=== PATIENT | female | born 1975 | race Caucasian/White ===

== ENCOUNTER → 2018-09-25 | Outpatient (CLI) | payer OTHER ==
[2018-09-25 09:14] VITALS: BP 122/80; PULSE 58; RESP 12; TEMP 98.6; BMI 22.4
--- NOTE | 2018-09-25 09:49 | P.GSHP ---
History of Present Illness H&P Date: 09/25/18 Chief Complaint: mass right breast Jo is a 43-year-old white female who is status post approximately one year ago a right breast open biopsy for a fibroadenoma. The patient states that the lesion was painful and following the procedure in which was placed in her breast which became infected. The patient this time is complaining of nodularity at the biopsy site. The nodularity is tender for the patient. She did have the right breast mammogram and ultrasound performed on 5618. This did not reveal any abnormal lesion either mammographically or via ultrasound. No stellate mass architectural distortion or suspicious microcalcifications were noted to suggest malignancy. No skin thickening or axillary adenopathy. Sonographic images of the right 11 to 12:00 axis with the patient felt the palpable abnormality did not demonstrate any suspicious abnormalities. There was a deep probable nonpalpable 0.6 cm incidental cyst. No architectural distortion was noted. The patient states when she left she feels discomfort above her nipple. She does not have pain otherwise. The nodularity it increases with her periods, and the pain is worse with her periods. The pain with her menstrual cycle is in both breast. Patient denies any nipple discharge or skin changes. The patient drinks one cup of coffee per day. Does not drink pop or tea. She smokes 1 PPD. She is not exposed to secondhand smoke. She does not eat much chocolate. She does not take any hormones or control pills. She had a tubal ligation. Family history: 1. sister: ovarian, and cervical 2. aunt maternal: breast, in early 50's 3. aunt, maternal: breast at 58 4. father: colon 5. maternal grandfather: bone marrow cancer, colon, breast cancer 6. paternal grandmother skin cancer Hormonal History: menarche: 13 , 2 miscarriages, first live : 29, breast fed: yes periods regular BCP: none hormones: none Past surgical history: 1. 3 / tubal ligation 2. Right breast biopsy 3. Cholecystectomy 4. Exploratory surgery secondary difficulty getting Medical history: Negative Social history: Smoking: One pack per day for 15 years Alcohol: Wine several times a week Drugs: negative - Constitutional Constitutional: Denies chills, Denies fever - EENT Eyes: denies blurred vision, denies pain Ears: deny: decreased hearing, tinnitus Ears, nose, mouth and throat: Denies headache, Denies sore throat - Breasts Breasts: bilateral: as per HPI - Cardiovascular Comment: Leaking heart valve Cardiovascular: Denies chest pain, Denies shortness of breath - Respiratory Respiratory: Denies cough, Denies 7 - Gastrointestinal Comment: History of diverticuli, patient has never had a colonoscopy Gastrointestinal: Denies abdominal pain, Denies diarrhea, Denies nausea, Denies vomiting - Genitourinary (Female) Genitourinary: Denies dysuria, Denies hematuria - Menstruation Menstruation: Reports period normal - Musculoskeletal Musculoskeletal: Denies myalgias - Integumentary Integumentary: Denies pruritus, Denies rash - Neurological Comment: 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 History of Any Multi-Drug Resistant Organisms: None Reported Past Surgical History: Section, Cholecystectomy, Tubal Ligation Additional Past Surgical History / Comment(s): X3, Past Anesthesia/Blood Transfusion Reactions: No Reported Reaction Past Psychological History: No Psychological Hx Reported Smoking Status: Current some day smoker Past Alcohol Use History: Occasional Additional Past Alcohol Use History / Comment(s): SMOKES 1 PPD. SMOKING SINCE 19 YEARS OLD. (APPROX 23 YEARS). 1-2 DRINKS PER WEEK. Past Drug Use History: None Reported - Past Family History Father Family Medical History: Cancer, COPD, Diabetes Mellitus Additional Family Medical History / Comment(s): on vent, crohns, skin cancer Mother Family Medical History: Hypertension Sister(s) Family Medical History: Cancer Additional Family Medical History / Comment(s): ovarian & cervical cancer Medications and Allergies Home Medications Medication Instructions Recorded Confirmed Type Ibuprofen [Motrin] 600 mg PO Q8HR PRN #20 tab 11/26/15 Rx Allergies Allergy/AdvReac Type Severity Reaction Status Date / Time adhesive tape AdvReac Severe PEELING Verified 11/26/15 21:10 Surgical - Exam Vital Signs Temp Pulse Resp BP Pulse Ox 98.6 F 58 L 12 122/80 98 09/25/18 09:05 09/25/18 09:05 09/25/18 09:05 09/25/18 09:05 09/25/18 09:05 - General well developed, well nourished, no distress - Eyes normal ocular movement - ENT normal pinna, no hearing loss - Neck no masses, trachea midline, no lymphadectomy - Respiratory normal expansion, normal respiratory effort, clear to auscultation - Cardiovascular Rhythm: regular Heart Sounds: normal: S1, S2 - Abdomen Abdomen: soft, non tender, no guarding, no rigid, no rebound - Integumentary normal turgor - Neurologic no disoriented, no combative - Musculoskeletal normal gait, normal posture - Psychiatric oriented to time, oriented to person, oriented to place, speech is normal, memory intact Breast exam: right breast: multipositional exam increased nodularity felt to be most likely scar tissue near the area of the prior biopsy, well healed scar prior surgery, fibrocystic breast changes Right axilla: Axillary shotty adenopathy Left breast: Multi-positional exam fibrocystic changes Left axilla: No adenopathy of concern Results Mammogram and ultrasound reports reviewed the right breast Pathology report is verbal and written the surgeon's note but it did not have the actual pathology report Assessment and Plan Assessment: Impression: 1. Nodularity right breast 2. Bilateral breast pain 3. History of fibroadenoma 4. History of Jimenez's palsy 5. History of "leaky heart valve" 6. Family history of breast cancer 7. Family history of cancer I have had a discussion with the patient regarding her breast pain and caffeine and nicotine. I have requested that she stopped these. Additionally we have talked about the fact that the pain is cyclical and is most likely related to hormonal changes at her menstrual period. Plan: 1. Core biopsy area of increased nodularity right breast 2. Genetic counseling/Genetic testing 3. 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 Patient to follow up here for core biopsy of right breast CC:Emilie Adams NP, [place]
== END | disposition home or self-care (01) ==
LOC: WWCWWP 09:02
PROVIDERS: ATTEND Surgery
DX: Z53.9 Procedure and treatment not carried out, unspecified reason (principal)

== ENCOUNTER → 2018-11-07 | Outpatient (CLI) | payer OTHER ==
[2018-11-07 08:32] VITALS: BP 128/84; PULSE 62; RESP 18; TEMP 98.6; BMI 22.9
--- NOTE | 2018-11-07 09:06 | P.OP ---
Date of Procedure: 11/07/18 Preoperative Diagnosis: fullness at biopsy site right breast Postoperative Diagnosis: same Anesthesia: local Surgeon: Nichole Chang Pathology: other (breast tissue) Condition: stable Disposition: same day Indications for Procedure: Palpable increased fullness at biopsy site right breast Operative Findings: dense breast tissue Description of Procedure: Jo is a 43-year-old white female who is several years ago underwent a right breast biopsy. Reportedly the pathology report was benign. Although the actual pathology is not available to us. The patient has increased nodularity at the site of the biopsy and increased pain at this site as well. An physical examination there is definite increased nodularity at the site. After discussion with the patient she has opted for a core biopsy of the area. Of importance is the fact that she has a strong history of breast and ovarian cancer. The patient was positioned on the procedure table. The right breast was prepped using Betadine. The skin was numbed using 1% lidocaine. Small tic was made in the skin and an 18-gauge Bard biopsy needle was advanced to the area of palpable abnormality. Core biopsy was obtained. An attempt to obtain additional core biopsies was unsuccessful as the needle did not fire. Therefore a second Bard 18-gauge core biopsy device was obtained. Using this device. Additional core biopsies were obtained. The patient tolerated the procedure in stable condition. The specimen was sent for pathology. The patient will follow-up next week. CC: Emilie Adams N.P., Dr. Cale Wilkerson ([place])
== END ==
LOC: WWCWWP 08:08
PROVIDERS: ATTEND Surgery
DX: N64.9 Disorder of breast, unspecified (principal)
CPT/HCPCS: 88305

== ENCOUNTER → 2018-11-14 | Outpatient (CLI) | payer OTHER ==
[2018-11-14 13:07] VITALS: BP 124/84; PULSE 69; RESP 16; TEMP 98.6; BMI 22.4
--- NOTE | 2018-11-14 13:23 | P.PN ---
Subjective Progress Note Date: 11/14/18 The patient is a 43-year-old white female status post core biopsy of the right breast of an area of nodularity on [id number]. Pathology revealed benign breast parenchyma with some microscopic intraductal mineralization's. Approximately one year ago she had a right breast open biopsy for fibroadenoma. The patient states the lesion was painful following the procedure the area became infected. The patient can place of continued discomfort and nodularity at this site. A mammogram and ultrasound done in August 2018 did not reveal any specific lesions of concern. Of nodularity and creases right before her periods. She is on her menstrual period right now. The patient continues to drink coffee and smokes cigarettes. Objective - Vital Signs Vital signs: Vital Signs Temp 98.6 F 11/14/18 13:04 Pulse 69 11/14/18 13:04 Resp 16 11/14/18 13:04 BP 124/84 11/14/18 13:04 Pulse Ox 99 11/14/18 13:04 Intake & Output 11/13/18 11/14/18 11/14/18 18:59 06:59 18:59 Weight 61.235 kg - Exam BMI 22.5 - Constitutional General appearance: Present: average body habitus - EENT Eyes: Present: EOMI ENT: Present: hearing grossly normal - Neck Neck: Present: normal ROM - Respiratory Respiratory: bilateral: CTA - Cardiovascular Rhythm: regular Heart sounds: normal: S1, S2 - Integumentary Integumentary: Present: normal turgor - Musculoskeletal Musculoskeletal: Present: gait normal - Psychiatric Psychiatric: Present: A&O x's 3, appropriate affect, intact judgment & insight - Additional findings Additional findings: Right breast exam: Examination of the core biopsy site reveals it to be clean and dry with mild ecchymosis no infection no hematoma Assessment and Plan Assessment: Impression: 1. Core biopsy benign of the right breast 2. Fibrocystic changes in the right breast 3. Mastodynia probably related to fibrocystic changes 4. Family history of breast cancer 5. Family history of cancer Plan: 1. I have encouraged the patient to stop her caffeine and nicotine use she is going to try to do this 2. Repeat right breast ultrasound in 6 months with physician exam at that time 3. Medical management of medical conditions 4. Patient has appointment for genetic counseling in January 17. Patient is going to schedule RECREATIONAL SPECIALIST appointment Cc: Emilie Marmolejo
== END ==
LOC: WWCWWP 12:57
PROVIDERS: ATTEND Surgery
DX: Z53.9 Procedure and treatment not carried out, unspecified reason (principal)

== ENCOUNTER → 2018-11-25 | Outpatient (CLI) | payer OTHER ==
[2018-11-25 14:42] VITALS: BP 124/78; PULSE 74; RESP 18; TEMP 98.5; BMI 22.9
--- NOTE | 2018-11-25 15:38 | P.HPOB ---
History of Present Illness H&P Date: 11/25/18 Chief Complaint: The patient is here for her routine gynecologic exam. This is a 43-year-old with an LMP of 11/13/2018. The patient is here to establish with this office. It has been about 3 or 4 years since her last pelvic exam. The patient is status post tubal ligation. Her menstrual periods are regular every month, but they have been getting heavier and more painful. She states that typically the 1st one or 2 days are very heavy and painful. She has to change her protection up to every one hour on these heavy days. She is otherwise without gynecologic complaints. She typically does not take medication for her menstrual periods. Review of Systems The patient's weight has been stable over the last year. She denies respiratory, cardiac, or G.I. problems. 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 She denies genital warts or any other STDs. She has no history of cervical problems. History of Any Multi-Drug Resistant Organisms: None Reported Past Surgical History: Section, Cholecystectomy, Tubal Ligation Additional Past Surgical History / Comment(s): x3, Past Anesthesia/Blood Transfusion Reactions: No Reported Reaction Past Psychological History: ADD/ADHD Smoking Status: Current every day smoker (Half pack per day which is down from one pack per day.) Past Alcohol Use History: Occasional (One every 2 weeks.) Additional Past Alcohol Use History / Comment(s): SMOKES 1/2 PPD. SMOKING SINCE 19 YEARS OLD. Past Drug Use History: None Reported Additional History: She is . She has been with her boyfriend since 2011 and lives with him. 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 - Past Family History Father Family Medical History: Cancer, COPD, Diabetes Mellitus Additional Family Medical History / Comment(s): crohns; skin cancer. Colon cancer. Mother Family Medical History: Hypertension Additional Family Medical History / Comment(s): Maternal grandfather had breast cancer and colon cancer. A maternal aunt had breast cancer. Sister(s) Family Medical History: Cancer Additional Family Medical History / Comment(s): ovarian & cervical cancer, hysterectomy at the age of 29 Medications and Allergies Home Medications Medication Instructions Recorded Confirmed Type No Known Home Medications 11/07/18 11/25/18 History Allergies Allergy/AdvReac Type Severity Reaction Status Date / Time adhesive tape AdvReac Severe PEELING Verified 11/25/18 14:31 Exam Vital Signs Temp Pulse Resp BP Pulse Ox 11/25/18 14:36 98.5 F 74 18 124/78 99 Intake and Output 11/25/18 11/25/18 11/25/18 06:59 14:59 22:59 Other: Weight 63.503 kg Height 5 feet 5 1/2 inches, weight 140 pounds, BMI 22.9. This is a well-developed well-nourished white female who is alert and oriented times 3 in no acute distress. HEENT: Within normal limits. NECK: Supple without mass or thyromegaly. CHEST AND LUNGS: Clear to auscultation. HEART: Regular rate and rhythm. BREASTS: Are without mass or discharge. There is a lateral scar on the right process consistent with her previous lumpectomy. AXILLARY EXAM: Negative for adenopathy. BACK: Negative for CVA tenderness. ABDOMEN: Soft, nontender, without palpable masses. PELVIC EXAM: Normal external genitalia. Cervix and vagina appear normal. The cervix looks nulliparous. There is no unusual discharge. There is no evidence of prolapse. The uterus is midposition, nongravid size and nontender. There are no palpable adnexal masses or tenderness. RECTAL EXAM: negative for mass or tenderness and is negative for occult blood. EXTREMITIES: Nontender. IMPRESSION: 1. 43-year-old female who is status post tubal ligation, with normal gynecologic exam 2. Mild hypermenorrhea and dysmenorrhea. 3. Family history of ovarian cancer in her sister. 4. Family history of breast cancer in a maternal grandfather and maternal aunt. 5. Family history of colon cancer. PLAN: 1. Pap smear was performed. 2. Self breast awareness was discussed with the patient. 3. The patient states she had a mammogram in June. She is scheduled for a right-sided ultrasound of the breast. Testing is being ordered by Dr. Ganesh Morris. She is also having breast exams done by Dr. Ganesh Morris. 4. The patient has been scheduled for genetic cancer testing because of her strong family history. She states she is having this done at [facility] in [place]. 5. I have recommended a pelvic ultrasound and this will be done yearly because of her family history of ovarian cancer in her sister. The order slip was given to the patient for this. 6. Trial of meclofenamate sodium 100 mg TID PRN for heavy menstrual flow up to 6 days per cycle. The prescription will be sent to [facility] in [place]. If no significant improvement, we will consider endometrial ablation. 7. She was advised to return in one year for her annual well woman exam and PRN.
== END | disposition home or self-care (01) ==
LOC: WWCWWP 14:23
PROVIDERS: ATTEND Obstetrics & Gynecology
DX: Z53.9 Procedure and treatment not carried out, unspecified reason (principal)

== ENCOUNTER → 2018-11-28 | Outpatient (CLI) | payer OTHER ==
--- NOTE | 2018-11-28 13:00 | US ---
EXAMINATION TYPE: US pelvic complete DATE OF EXAM: 11/28/2018 COMPARISON: US 2014 CLINICAL HISTORY: Z80.41 FH OVARIAN CA. Heavy painful cycles, family history ovarian cancer, 5, para 3, miscarriage 2, history 3 c-sections and tubal ligation TECHNIQUE: Transabdominal sonographic images of the pelvis were acquired. Date of LMP: 11/13/2018 EXAM MEASUREMENTS: Uterus: 8.9 x 4.9 x 5.2 cm Endometrial Stripe: 0.9 cm Right Ovary: 2.8 x 1.9 x 1.7 cm Left Ovary: 2.4 x 1.3 x 2.4 cm 1. Uterus: anteverted, heterogeneous, particularly in the junctional zone, such as on image 2/37 of the posterior mid body of the uterus. 2. Endometrium: wnl 3. Right Ovary: wnl 4. Left Ovary: wnl 5. Bilateral Adnexa: wnl 6. Posterior cul-de-sac: wnl IMPRESSION: 1. Heterogenous myometrium, particularly in the junctional zone that can be seen in adenomyosis. If t here is further concern MRI pelvis could be performed with contrast. 2. Physiologic ovarian follicles. No suspicious cysts.
== END | disposition home or self-care (01) ==
LOC: RADUSWWP 12:10
PROVIDERS: ATTEND Obstetrics & Gynecology
DX: Z12.73 Encounter for screening for malignant neoplasm of ovary (principal); Z80.41 Family history of malignant neoplasm of ovary
CPT/HCPCS: 76856

== ENCOUNTER 2019-01-20 20:00 | Observation (INO) | payer OTHER ==
[2019-01-20 23:00] VITALS: BMI 23.3
[2019-01-21] MEDS ORDERED: MORPHINE SULFATE 4 MG/ML SYRINGE IV PRN (00:40)
[2019-01-21] MEDS ORDERED: PANTOPRAZOLE 40 MG TABLET PO SCH (08:15)
--- NOTE | 2019-01-21 10:16 | P.CRDCN ---
History of Present Illness History of present illness: This is a pleasant 43-year-old female past medical history significant for cholecystectomy and chronic nicotine dependence. She denies history of coronary artery disease, hypertension, dyslipidemia or diabetes mellitus. We have been asked to see her in consultation for chest pain. She states yesterday while watching TV with her daughter she started having a pain in her chest in the upper anterior mid-sternal region. The pain felt heavy and radiated out to both shoulders. The pain was quite intense and sudden when is started. She has some associated nausea with no vomiting. She denies shortness of breath, dizziness or palpitations. She went to [facility] and was sent here for further evaluation. At [facility] she underwent a chest xray that was normal, CTA chest negative for PE with emphsematic changes and right heart dysfunction and normal aorta, laboratory data reviewed, WBC 7.7, hemoglobin 14, platelets 209, d-dimer 0.87, sodium 143, potassium 3.6, magnesium 2.0, creatinine 0.9, BNP 32 and troponin negative 1. She also had 2 normal troponins drawn here. She continues to have chest pain that is not related to breathing or coughing and is not reproducible on palpation. She states she is just getting over an upper respiratory illness and is still coughing at times. She has never had a stress test in the past. She takes no daily medications. She did get a dose of maalox at [facility] that did not relieve her pain. At the time of my exam: CONSTITUTIONAL: Denies fever. Denies chills. EYES: Denies blurred vision. Denies vision changes. Denies eye pain. EARS, NOSE, MOUTH & THROAT: Denies headache. Denies sore throat. Denies ear pain. CARDIOVASCULAR: Complains of chest pain. Denies shortness of breath. Denies orthopnea. Denies PND. Denies palpitations. RESPIRATORY: Denies cough. GASTROINTESTINAL: Denies abdominal pain. Denies diarrhea. Denies constipation. Denies nausea. Denies vomiting. MUSCULOSKELETAL: Denies myalgias. INTEGUMENTARY: Denies pruitis. Denies rash. NEUROLOGIC: Denies numbness. Denies tingling. Denies weakness. PSYCHIATRIC: Denies anxiety. Denies depression. ENDOCRINE: Denies fatigue. Denies weight change. Denies polydipsia. Denies polyurina. GENITOURINARY: Denies burning, hematuria or urgency with micturation. HEMATOLOGIC: Denies history of anemia. Denies bleeding. Blood pressure 108/74 heart rate 70 afebrile maintaining oxygen saturation on room air GENERAL: This is a 43-year-old female in no apparent distress at the time of my examination. HEENT: Head is atraumatic, normocephalic. Pupils are equal, round. Sclerae anicteric. Conjunctivae are clear. Mucous membranes of the mouth are moist. Neck is supple. There is no jugular venous distention. No carotid bruit is heard. LUNGS: Clear to auscultation no wheezes, rales or rhonchi. No chest wall tenderness is noted on palpation or with deep breathing. HEART: Regular rate and rhythm without murmurs, rubs or gallops. S1 and S2 heard. ABDOMEN: Soft, nontender. Bowel sounds are heard. No organomegaly noted. EXTREMITIES: No evidence of peripheral edema and no calf tenderness noted. VASCULAR: Radial and dorsalis pedis pulses palpated, no evidence of clubbing. NEUROLOGIC: Patient is awake, alert and oriented x3. ASSESSMENT Chest pain, atypical. An acute coronary event has been ruled out. Chronic nicotine dependence PLAN An acute coronary event has been ruled out. Echocardiogram has been obtained and will be reviewed. Repeat EKG. Perform stress echocardiogram and doppler study to assess cardiac structure and function. Give protonix 40 mg. If stress test is normal she may be discharged from a cardiac perspective. Smoking cessation recommended. Thank you kindly for this consultation. Nurse Practitioner note has been reviewed, I agree with a documented findings and plan of care. Patient was seen and examined. 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 She denies genital warts or any other STDs. She has no history of cervical problems. Patient states she has a leaky valve in heart. History of Any Multi-Drug Resistant Organisms: None Reported Past Surgical History: Section, Cholecystectomy, Tubal Ligation Additional Past Surgical History / Comment(s): x3, Tumor removed from right breast. Past Anesthesia/Blood Transfusion Reactions: No Reported Reaction Past Psychological History: ADD/ADHD Smoking Status: Current every day smoker Past Alcohol Use History: Occasional Additional Past Alcohol Use History / Comment(s): SMOKES 1/2 PPD. SMOKING SINCE 19 YEARS OLD. Past Drug Use History: None Reported - Past Family History Father Family Medical History: Cancer, COPD, Diabetes Mellitus Additional Family Medical History / Comment(s): crohns; skin cancer. Colon cancer. Mother Family Medical History: Hypertension Additional Family Medical History / Comment(s): Maternal grandfather had breast cancer and colon cancer. A maternal aunt had breast cancer. Sister(s) Family Medical History: Cancer Additional Family Medical History / Comment(s): ovarian & cervical cancer, hysterectomy at the age of 29 Medications and Allergies Home Medications Medication Instructions Recorded Confirmed Type Meclofenamate Sodium 100 mg PO TID PRN #25 capsule 11/25/18 01/21/19 Rx Allergies Allergy/AdvReac Type Severity Reaction Status Date / Time adhesive tape AdvReac Severe PEELING Verified 01/21/19 07:21 Physical Exam Vitals: Vital Signs Temp Pulse Pulse Resp BP Pulse Ox 01/21/19 08:48 98 01/21/19 07:53 98.3 F 70 17 108/74 98 01/21/19 04:00 98.0 F 70 15 118/64 97 01/20/19 23:32 97.9 F 67 15 116/67 98 01/20/19 23:15 60 01/20/19 22:43 17 Intake and Output 01/20/19 01/21/19 01/21/19 22:59 06:59 14:59 Other: # Voids 1 Weight 65.771 kg Results Cardiac Enzymes 01/21/19 01/21/19 Range/Units 01:45 07:13 Troponin I <0.012 <0.012 (0.000-0.034) ng/mL Current Medications Generic Name Dose Route Start Last Admin Trade Name Freq PRN Reason Stop Dose Admin Morphine Sulfate 2 mg 01/21/19 00:40 01/21/19 02:04 Morphine Sulfate (Inj) IV 2 mg Q4HR PRN Administration Severe Pain Pantoprazole Sodium 40 mg 01/21/19 08:15 Protonix PO [id number] JORGE Intake and Output 01/20/19 01/21/19 01/21/19 22:59 06:59 14:59 Other: # Voids 1 Weight 65.771 kg
--- NOTE | 2019-01-21 11:33 | ECHOF ---
Referral Reason:cardiomegaly found on CT, Chest Pain MEASUREMENTS -------- HEIGHT: 165.1 cm WEIGHT: 65.8 kg BP: 118/64 RVIDd: 2.8 cm (< 3.3) IVSd: 1.1 cm (0.6 - 1.1) LVIDd: 4.5 cm (3.9 - 5.3) LVPWd: 1.0 cm (0.6 - 1.1) IVSs: 1.4 cm LVIDs: 3.3 cm LVPWs: 1.3 cm LA Diam: 3.4 cm (2.7 - 3.8) LAESV Index (A-L): 19.79 ml/m Ao Diam: 2.3 cm (2.0 - 3.7) AV Cusp: 1.5 cm (1.5 - 2.6) LA Diam: 3.1 cm (2.7 - 3.8) MV EXCURSION: 12.755 mm (> 18.000) MV EF SLOPE: 74 mm/s (70 - 150) EPSS: 0.3 cm MV E Richar: 0.91 m/s MV DecT: 163 ms MV A Richar: 0.70 m/s MV E/A Ratio: 1.30 FINDINGS -------- Sinus rhythm. This was a technically good study. LV size, wall thickness and systolic function are normal, with an EF greater than 55%. The left barbra tricular size is normal. The diastolic filling pattern is normal for the age of the patient 10.16. The right ventricle is normal in size. The left atrial size is normal. Normal LA size by volume 22+/-6 ml/m2. The right atrial size is normal. There is mild aortic valve sclerosis. There is no evidence of aortic regurgitation. Mild mitral annular calcification present. Mild mitral regurgitation is present. No regurgitation noted Right ventricular systolic pressure is normal at < 35 mmHg. There is no ev idence of pulmonary hypertension. There is no pulmonic regurgitation present. The aortic root size is normal. There is no pericardial effusion. CONCLUSIONS -------- 1. Sinus rhythm. 2. This was a technically good study. 3. LV size, wall thickness and systolic function are normal, with an EF greater than 55%. 4. The left ventricular size is normal. 5. The diastolic filling pattern is normal for the age of the patient 10.16 6. The right ventricle is normal in size. 7. The left atrial size is normal. 8. Normal LA size by volume 22+/-6 ml/m2. 9. The right atrial size is normal. 10. There is mild aortic valve sclerosis. 11. Mild mitral annular calcification present. 12. Mild mitral regurgitation is present. 13. No regurgitation noted 14. Right ventricular systolic pressure is normal at < 35 mmHg. 15. There is no evidence of pulmonary hypertension. 16. There is no pulmonic regurgitation present. 17. The aortic root size is normal. 18. There is no pericardial effusion. SALES AND SERVICE AGENT: Ayaka Godoy RDCS
[2019-01-21] MEDS ORDERED: ACETAMINOPHEN TAB 325 MG TAB PO PRN (11:57)
[2019-01-21] MEDS ORDERED: HYDROcodone/APAP 5-325MG 1 EACH TAB PO PRN (11:57)
[2019-01-21 11:59] VITALS: BP 139/80; PULSE 60; RESP 18; TEMP 97.7
--- NOTE | 2019-01-21 14:42 | ECHOS ---
STRESS ECHOCARDIOGRAM INDICATIONS: Chest pain. MEDICATIONS: None. BASELINE HEART RATE: 68 BASELINE BLOOD PRESSURE: 104/68 MAXIMUM HEART RATE: 154 MAXIMUM BLOOD PRESSURE: 138/41 85% MPHR: 151 100% MPHR: 178 METS: 11.7 MAXIMUM STAGE REACHED: 4 TOTAL EXERCISE TIME: 10:3o CLINICAL INFORMATION: The patient was exercised for a total period of 10 minutes and 30 seconds. The peak heart rate of 154 was achieved. Maximum blood pressure of 138/41 mmHg was noted. Resting EKG shows normal sinus rhythm with normal NH interval and QRS duration and normal ST-T waves. No ST segment depression suggestive of ischemia is noted. The baseline echocardiographic images reveals normal left ventricular chamber size with normal left ventricular systolic function in the immediate postexercise period. Normal increase in the wall thickness and contractility is noted. FINAL IMPRESSION: This stress echocardiographic study is negative for stress-induced ischemia. EKG portion of the stress test is not suggestive of ischemia. Patient's exercise tolerance is normal. MMODL / IJN: [id number] /
--- NOTE | 2019-01-21 17:40 | HP ---
HISTORY AND PHYSICAL This is a combined history and physical and discharge summary. CHIEF COMPLAINT: Chest pain. HISTORY OF PRESENT ILLNESS: This 43-year-old woman with a past medical history of multiple medical problems, including occasional migraines, diverticulosis, leaky heart valve, history of section, history ADD, ADHD, being followed by Emilie Adams in the outpatient setting, was complaining of chest pain. The pain was felt in the middle of the chest, mild to moderate in intensity, and the patient was evaluated in [facility]. CT scan showed no evidence of pulmonary embolism. Right ventricular dysfunction was suspected. The patient was transferred directly to [facility] and admitted for further evaluation and treatment. Cardiology saw the patient. Myocardial infarction was ruled out. Cardiology performed a stress test which was reported as normal. A 2D echo also was done which showed no right ventricular predominance or abnormality. There is no history of fever rigor, chills. No history of headache, loss of consciousness, seizures. PAST MEDICAL HISTORY: 1. History of migraine. 2. History of leaky heart valve. 3. History of diverticulosis. HOME MEDICATIONS: 1. Meclofenamate sodium 100 mg t.i.d. p.r.n. 2. Tylenol p.r.n. ALLERGIES: ADHESIVE TAPES. FAMILY HISTORY: History of cancer, COPD, diabetes mellitus, Crohn's, skin cancer. SOCIAL HISTORY: History of smoking, continued and ongoing. REVIEW OF SYSTEMS: ENT: No diminished hearing. No diminished vision. CARDIOVASCULAR SYSTEM: As mentioned earlier. RESPIRATORY SYSTEM: As mentioned earlier. GI: No nausea, vomiting. : No dysuria or retention. NERVOUS SYSTEM: No numbness, weakness. ALLERGY/IMMUNOLOGY: No asthma, hayfever. MUSCULOSKELETAL: As mentioned earlier. HEMATOLOGY/ONCOLOGY: No history of anemia. ENDOCRINE: No history of diabetes, hypothyroidism. CONSTITUTIONAL: As mentioned earlier. DERMATOLOGY: Negative. RHEUMATOLOGY: Negative. PSYCHIATRY: As mentioned earlier. PHYSICAL EXAMINATION: Patient alert and oriented x3. Pulse is 60, blood pressure 139/80, respiration 18, temperature 97.7, pulse ox 100% on room air. HEENT: Conjunctivae normal. Oral mucosa moist. NECK: No jugular venous distention. No carotid bruit. No lymph node enlargement. CARDIOVASCULAR SYSTEM: S1, S2 muffled. No S3. No S4. RESPIRATORY SYSTEM: Breath sounds diminished at the bases. No rhonchi. No crackles. ABDOMEN: Soft, non-tender. No mass palpable. LEGS: No edema. No swelling. NERVOUS SYSTEM: Higher functions as mentioned earlier. Moves all 4 limbs. No focal motor or sensory deficit. LYMPHATICS: No lymph node palpable in neck, axillae or groin. SKIN: No ulcer, rash, bleeding. JOINTS: No active deforming arthropathy. LABS: Labs at this time show troponin less than 0.012. ASSESSMENT: 1. Chest pain, possibly musculoskeletal, with negative stress echo per report. 2. No evidence of right ventricular dysfunction on 2D echo. 3. No evidence of pulmonary embolism on CT angio done elsewhere. 4. History of migraine. 5. History of diverticulosis. 6. History of attention-deficit disorder/ attention-deficit/hyperactivity disorder. 7. Continued ongoing nicotine dependence. RECOMMENDATIONS AND DISCUSSION: In this 43-year-old woman who presented with multiple medical issues, at this time the workup has been negative for the chest pain. I recommended that the patient stay for 24 hours more for observation, but at this time the patient would like to return home. Also the patient was cleared for discharge by Cardiology. So the patient will be discharged. Symptomatic treatment. Further plans to follow up closely with cardiology and pulmonary physician in case of any recurrence of symptoms. Otherwise, smoking cessation was also recommended. DISCHARGE ADVICE AND MEDICATIONS: 1. Tylenol p.r.n. 2. Meclofenamate sodium 100 mg t.i.d. p.r.n. Once again, the patient will be discharged in stable condition with guarded prognosis. MMODL / IJN: [id number] /
== END 2019-01-21 14:33 | disposition home or self-care (01) ==
LOC: 1SOBS 20:00
PROVIDERS: ADMIT Internal Medicine; ATTEND Internal Medicine
DX: R07.89 Other chest pain (principal); R11.0 Nausea; R05 Cough; G43.909 Migraine, unspecified, not intractable, without status migrainosus; F90.9 Attention-deficit hyperactivity disorder, unspecified type; F17.200 Nicotine dependence, unspecified, uncomplicated; Z91.048 Other nonmedicinal substance allergy status; Z79.899 Other long term (current) drug therapy; Z86.79 Personal history of other diseases of the circulatory system; Z87.19 Personal history of other diseases of the digestive system; Z98.891 History of uterine scar from previous surgery; Z90.49 Acquired absence of other specified parts of digestive tract; Z83.3 Family history of diabetes mellitus; Z82.5 Family history of asthma and other chronic lower respiratory diseases; Z80.8 Family history of malignant neoplasm of other organs or systems; Z83.79 Family history of other diseases of the digestive system; Z80.0 Family history of malignant neoplasm of digestive organs; Z80.3 Family history of malignant neoplasm of breast; Z80.49 Family history of malignant neoplasm of other genital organs
CPT/HCPCS: 93005; 96374; 93306; 93351; 84484; G0378 ×2; G0379; J2270

== ENCOUNTER → 2019-03-17 | Outpatient (CLI) | payer OTHER ==
[2019-03-17 10:15] LABS: Appearance,Urine Cloudy (Clear); Bacteria,Urine Rare /hpf; Bilirubin,Urine Negative (Negative); Blood,Urine Small (Negative); Color,Urine Yellow; Glucose,Urine (UA) Negative (Negative); Ketones,Urine Negative (Negative); Leukocyte Esterase,Urine Negative (Negative); Mucus,Urine Rare /hpf; Nitrite,Urine Negative (Negative); Protein,Urine Negative (Negative); RBC,Urine 8 /hpf (0-5); Specific Gravity,Urine 1.014 (1.001-1.035); Squamous Epithelial Cell,Urine 17 /hpf (0-4); Urobilinogen,Urine <2.0 mg/dL (<2.0); WBC,Urine 1 /hpf (0-5)
[2019-03-17 10:17] LABS: INR 0.9 (<1.2); Partial Thromboplastin Time 24.6 sec (22.0-30.0); Prothrombin Time 9.8 sec (9.0-12.0)
[2019-03-17 10:22] LABS: HCT 48.2 % (34.0-46.0); HGB 15.1 gm/dL (11.4-16.0); MCH 28.2 pg (25.0-35.0); MCHC 31.3 g/dL (31.0-37.0); MCV 90.1 fL (80.0-100.0); Mean Platelet Volume 7.2; Platelet Count 241 k/uL (150-450); RBC 5.35 m/uL (3.80-5.40); RDW 13.5 % (11.5-15.5); WBC 10.5 k/uL (3.8-10.6)
[2019-03-17 21:28] LABS: African American GFR (CKD) 104.7 (60.0-200.0); Albumin 4.5 g/dL (3.80-4.90); Albumin/Globulin Ratio 2.05 (1.60-3.17); Anion Gap 6.6 mmol/L (4.00-12.00); BUN/Creat Ratio 12.5 Ratio (12.00-20.00); Calcium 9.4 mg/dL (8.7-10.3); Carbon Dioxide 25.4 mmol/L (21.6-31.8); Globulin 2.2 g/dL (1.6-3.3); Non-African American GFR(CKD) 90.3 (60.0-200.0); Potassium 4.4 mmol/L (3.5-5.5); Total Bilirubin 0.5 mg/dL (0.2-1.2); Total Protein 6.7 g/dL (6.2-8.2)
== END | disposition home or self-care (01) ==
LOC: LABWHC1 09:38
PROVIDERS: ATTEND Orthopaedic Surgery Orthopaedic Surgery of the Spine
DX: M54.12 Radiculopathy, cervical region (principal); Z98.1 Arthrodesis status
CPT/HCPCS: 36415; 80053; 81001; 85027; 85610; 85730

== ENCOUNTER → 2019-05-18 | Outpatient (CLI) | payer OTHER ==
--- NOTE | 2019-05-19 07:41 | USB ---
Reason for exam: clinical finding. History: Family history of breast cancer in maternal aunt at age 56, breast cancer in maternal aunt at age 40, and breast cancer in maternal grandfather at age 8. Excisional biopsy of the right breast, 2019. Excisional biopsy of the right breast, 2017. Indicated problem(s): lump or thickening in the right breast. Physical Findings: Nurse Summary: 1cm palpable lump right breast at 11 o'clock (nurse jj). US Breast RT Technologist: Angie Castorena Right complete breast ultrasound includes all four quadrants, the retroareolar region and axilla. Finding demonstrates a 0.7 x 0.5 x 0.4cm cystic lesion at 12 o'clock, septation, complicated cyst, a 0.7 x 0.4 x 0.7cm solid lesion with shadowing at 10 o'clock palpable, biopsy recommended and a 0.7 x 0.7 x 0.4cm cystic, complicated cyst at 1o'clock. These results were verbally communicated with the patient and result sheet given to the patient on 05/18/19. ASSESSMENT: Suspicious, BI-RAD 4 RECOMMENDATION: Ultrasound core biopsy of the right breast. Called office with mammographic findings and has scheduled an appointment for the patient for 05/27/[address] Chang. Biopsy scheduled for 06/01/19 at 2:00. PRELIMINARY REPORT CALLED AND FAXED TO DR. CHANG ON 05/18/19.
== END | disposition home or self-care (01) ==
LOC: RADUSWWP 14:28
PROVIDERS: ATTEND Surgery
DX: R92.8 Other abnormal and inconclusive findings on diagnostic imaging of breast (principal)

== ENCOUNTER → 2019-06-01 | Day surgery (SDC) | payer OTHER ==
[2019-06-01 14:16] VITALS: RESP 16; TEMP 98
[2019-06-01 16:10] VITALS: BP 131/79; PULSE 74
--- NOTE | 2019-06-01 19:15 | USB ---
EXAMINATION TYPE: US biopsy breast VAD RT, MG diagnostic mammo RT wo CAD DATE OF EXAM: 06/01/2019 CLINICAL HISTORY: 44-year-old female R92.8, Abnormal mammogram. Patient with prior history of excisional biopsy right breast. TECHNIQUE: Ultrasound guided core biopsy of the right breast. COMPARISON: 05/18/2019, 08/18/2018 FINDINGS: The procedure of ultrasound guided core biopsy was explained to the patient. Benefits, alternatives, and risks were discussed. An informed consent was then obtained. The vague area of shadowing at the 10:00 position is identified and targeted for biopsy. The patient was placed in supine positioning for imaging and for the procedure. The overlying skin was prepped and draped in usual sterile fashion. Lidocaine was used as anesthetic into the skin and subcutaneous tissue up to area of concern in the 10:00 right breast. Of note, the area became less defined after anesthetic injection. Under ultrasound guidance, a 13-gauge vacuum-assisted mammotome biopsy gun was used to obtain 6 core samples. Following this, a wing clip was left in lesion. The patient tolerated the procedure well without any immediate complication. The patient was kept in the radiology department for short stay after the procedure and then discharged home in stable condition. Postbiopsy mammogram shows the clip at the upper outer quadrant. IMPRESSION: Successful, uncomplicated ultrasound guided core biopsy of area of concern in the right breast, full pathology results to follow. We note overlying excisional scar on the skin surface. RECOMMENDATION: 1. If benign results, six-month follow-up diagnostic left breast mammogram and ultrasound. 2. If right breast biopsy shows malignant results, two site biopsy will be recommended on the left breast prior to surgical management of the right breast. Pathology Results: Benign RIGHT BREAST, ULTRASOUND GUIDED CORE BIOPSY: Fibrocystic changes including sclerosing adenosis with calcifications, stromal fibrosis/scar and cysts. Recommendation Follow up mammogram and ultrasound of both breasts in 6 months. Post biopsy follow up for the right breast. 6 month follow up for the left breast for findings on the 06/01/19 exam. BIANCA
--- NOTE | 2019-06-12 10:10 | P.PN ---
Progress Note - Text Progress Note Date: 06/12/19 Jo was scheduled to come for post ultrasound biopsy results on . She was unable to keep her appointment secondary to adverse weather conditions. The ultrasound core biopsy revealed fibrocystic changes including sclerosing adenosis with calcifications, sterile fibrosis/scar and cyst. The results were reviewed with Dr. Lara from radiology. The findings were felt to be discordant and right breast excisional biopsy was recommended. This was relayed to the patient. Additionally the patient was noted to have 2 areas of concern in the left breast for which Dr. Lara has recommended ultrasound-guided core biopsy. This was discussed with the patient the patient will have ultrasound core biopsy of 2 areas of concern in the left breast to be followed by Localization and excisional biopsy of the right breast. I discussed this with the patient she understands and this will be scheduled in the near future.
--- NOTE | 2019-07-07 15:03 | P.PN ---
Progress Note - Text Progress Note Date: 07/07/19 I talked to naseem Garcia on the phone regarding her core biopsy results. These are benign. She understands she states she isn't doing well from the procedure. She does not wish to come in at this time secondary to the skin regarding the coronavirus. The patient is scheduled to follow-up in approximately 1 month. She has complained of some swelling in lymph nodes under her arm and this will be evaluated when she returns in 1 month. She has any urgent concerns she should come sooner.
== END ==
LOC: RADUSWWP 13:55
PROVIDERS: ATTEND Surgery
DX: N60.11 Diffuse cystic mastopathy of right breast (principal); N60.21 Fibroadenosis of right breast; R92.1 Mammographic calcification found on diagnostic imaging of breast; R92.8 Other abnormal and inconclusive findings on diagnostic imaging of breast
CPT/HCPCS: 88305; 77065; 19083; A4648; J2001

== ENCOUNTER → 2019-06-01 | Outpatient (CLI) | payer OTHER ==
--- NOTE | 2019-06-02 08:13 | MM ---
Reason for exam: follow-up at short interval from prior study. Last mammogram was performed 9 months ago. History: Family history of breast cancer in maternal aunt at age 56, breast cancer in maternal aunt at age 40, and breast cancer in maternal grandfather at age 80. Benign core biopsy of the right breast, November 07, 2018. Excisional biopsy of the right breast, 2017. Physical Findings: Nurse Summary: 0.5 x 0.5cm nodule in the right breast at 10 o'clock and 12 o'clock (nurse ts). MG Diagnostic Mammo w CAD WILL Bilateral CC and MLO view(s) were taken. Prior study comparison: May 18, 2019, right breast US breast RT. August 18, 2018, mammogram, performed at [facility]. The breast tissue is heterogeneously dense. This may lower the sensitivity of mammography. Two palpable markers on the right breast at 10 o'clock and 2 o'clock. Asymmetric density central left CC view just medial to the retroareolar plane. These results were verbally communicated with the patient and result sheet given to the patient on 06/01/19. ASSESSMENT: Incomplete: need additional imaging evaluation, BI-RAD 0 RECOMMENDATION: Ultrasound of the left breast.
--- NOTE | 2019-06-02 08:18 | USB ---
Reason for exam: additional evaluation requested from abnormal screening. History: Family history of breast cancer in maternal aunt at age 56, breast cancer in maternal aunt at age 40, and breast cancer in maternal grandfather at age 80. Benign core biopsy of the right breast, November 07, 2018. Excisional biopsy of the right breast, 2017. US Breast LT Technologist: Angie Castorena Left complete breast ultrasound includes all four quadrants, the retroareolar region and axilla. Finding demonstrates a 0.9 x 0.8 x 0.5cm oval, hyperechoic, benign node at 1 o'clock, a 0.7 x 0.4 x 0.3cm oval, probable cyst at 3 o'clock, a 1.3 x 0.7 x 0.5cm interval echoes, duct ectasia at the posterior nipple, a 0.8 x 0.6 x 0.4cm oval, mixed lesion at 7 o'clock, 6 month follow up, if right breast positive, biopsy recommended and a 0.7 x 0.5 x 0.6cm prominent hypoechoic area, lesion verus tissue at 1 o'clock, 6 month follow up, if right breast position, biopsy recommended. These results were verbally communicated with the patient and result sheet given to the patient on 06/01/19. ASSESSMENT: Suspicious, BI-RAD 4 RECOMMENDATION: Ultrasound core biopsy. Right breast biopsy. Follow-up diagnostic mammogram and ultrasound of the left breast in 6 months. Called office with mammographic findings and has scheduled an appointment for the patient with Dr. Chang. Biopsy scheduled for 06/01/19. PRELIMINARY REPORT CALLED AND FAXED TO DR. CHANG ON 06/02/19.
== END | disposition home or self-care (01) ==
LOC: RADMAMWWP 10:52
PROVIDERS: ATTEND Surgery
DX: R92.8 Other abnormal and inconclusive findings on diagnostic imaging of breast (principal)
CPT/HCPCS: 77066

== ENCOUNTER → 2019-06-25 | Day surgery (SDC) | payer OTHER | CPT/HCPCS: 88305; 77065; 19083; A4648; J2001 ==

== ENCOUNTER → 2019-09-04 | Outpatient (CLI) | payer OTHER ==
[2019-09-04 13:46] VITALS: BP 131/85; PULSE 79; RESP 18; TEMP 98.7
--- NOTE | 2019-09-04 14:11 | P.PN ---
Subjective Progress Note Date: 09/04/19 Principal diagnosis: discordant bilateral breast biopsies Jo is a 44 year old white female who was initially seen approximately a year ago. Approximately 2 years ago she had a right breast open biopsy for fibroadenoma. The patient since that time underwent a bilateral mammogram in May 2019. The mammogram revealed an area of concern in the left breast. 2 areas were noted on ultrasound only one was biopsied as on the day of biopsy the second one was felt to be a conglomeration of cysts. The second biopsy which was at the 1 o'clock position showed benign changes however the radiologist is considering this discordant and is recommending a needle localization and excisional biopsy on the left side. It should also be noted that on the right side an ultrasound was performed and an area of concern was identified at the 10 o'clock position and this was fibrocystic changes including sclerosing adenosis with calcifications, stromal fibrosis, and scar. This was also felt to be discordant and reviewed with radiology and needle localization and excision was recommended. The patient most recently is complaining of left breast bloody nipple discharge which occurred 2 weeks ago. She states that this occurred just before she was going to begin her menstrual period. Her breasts become engorged before that time. She has not had bloody discharge however from the left in the past. She also states that she noticed some yellow discharge from the right. There was no milky discharge. She is not noticing any discharge at the present time, however she noticed some yellow staining at the nipple site in both of her bras when she washes them. The patient has bilateral breast discomfort. It is more concentrated on the left side. It is on the lateral aspect of the breast. It is more noted at the time just before her period. On the right side the pain is shooting in nature through the nipple. It is intermittent and not cyclical on the right. Caffiene: decaf coffee smoke: 2-3 cigarettes/day was > 1/PPD, secondhand smoke, her boyfriend does smoke chocolate:none Does not use any control pills or hormones, no herbal supplements Family history: 1. sister: ovarian, and cervical 2. aunt maternal: breast, in early 50's 3. aunt, maternal: breast at 58 4. father: colon 5. maternal grandfather: bone marrow cancer, colon, breast cancer 6. paternal grandmother skin cancer Hormonal History: menarche: 13 , 2 miscarriages, first live : 29, breast fed: yes periods regular BCP: none hormones: none Past surgical history: 1. 3 / tubal ligation 2. Right breast biopsy 3. Cholecystectomy 4. Exploratory surgery secondary difficulty getting Medical history: Negative Social history: Smoking: One pack per day for 15 years Alcohol: Wine several times a week Drugs: negative - Constitutional Constitutional: Denies chills, Denies fever - EENT Eyes: denies blurred vision, denies pain Ears: deny: decreased hearing, tinnitus Ears, nose, mouth and throat: Denies headache, Denies sore throat - Breasts Breasts: bilateral: as per HPI - Cardiovascular Comment: Leaking heart valve Cardiovascular: Denies chest pain, Denies shortness of breath - Respiratory Respiratory: Denies cough, Denies 7 - Gastrointestinal Comment: History of diverticuli, patient has never had a colonoscopy Gastrointestinal: Denies abdominal pain, Denies diarrhea, Denies nausea, Denies vomiting - Genitourinary (Female) Genitourinary: Denies dysuria, Denies hematuria - Menstruation Menstruation: Reports period normal - Musculoskeletal Musculoskeletal: Denies myalgias - Integumentary Integumentary: Denies pruritus, Denies rash - Neurological Comment: 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 History of Any Multi-Drug Resistant Organisms: None Reported Past Surgical History: Section, Cholecystectomy, Tubal Ligation Additional Past Surgical History / Comment(s): X3, Past Anesthesia/Blood Transfusion Reactions: No Reported Reaction Past Psychological History: No Psychological Hx Reported Smoking Status: Current some day smoker Past Alcohol Use History: Occasional Additional Past Alcohol Use History / Comment(s): SMOKES 1 PPD. SMOKING SINCE 19 YEARS OLD. (APPROX 23 YEARS). 1-2 DRINKS PER WEEK. Past Drug Use History: None Reported - Past Family History Father Family Medical History: Cancer, COPD, Diabetes Mellitus Additional Family Medical History / Comment(s): on vent, crohns, skin cancer Mother Family Medical History: Hypertension Sister(s) Family Medical History: Cancer Additional Family Medical History / Comment(s): ovarian & cervical cancer Medications and Allergies Home Medications Medication Instructions Recorded Confirmed Type Ibuprofen [Motrin] 600 mg PO Q8HR PRN #20 tab 11/26/15 Rx Allergies Allergy/AdvReac Type Severity Reaction Status Date / Time adhesive tape AdvReac Severe PEELING Verified 11/26/15 21:10 Objective - Vital Signs Vital signs: Vital Signs Temp 98.7 F 09/04/19 13:41 Pulse 79 09/04/19 13:41 Resp 18 09/04/19 13:41 BP 131/85 09/04/19 13:41 Pulse Ox 98 09/04/19 13:41 Intake & Output 09/03/19 09/04/19 09/04/19 18:59 06:59 18:59 Weight 63.503 kg - Exam BMI 22.9 - Constitutional General appearance: Present: average body habitus, cooperative - EENT Eyes: Present: EOMI ENT: Present: hearing grossly normal - Neck Neck: Present: normal ROM - Respiratory Respiratory: bilateral: CTA - Cardiovascular Rhythm: regular Heart sounds: normal: S1, S2 - Gastrointestinal General gastrointestinal: Present: normal bowel sounds, soft - Integumentary Integumentary: Present: normal turgor - Musculoskeletal Musculoskeletal: Present: gait normal - Psychiatric Psychiatric: Present: A&O x's 3, appropriate affect, intact judgment & insight - Additional findings Additional findings: breast exam: BRA: 38C inspection: no nipple inversion, ptosis grade 2 Palpation: Right breast: Multi-positional exam fibrocystic changes, well-healed scar from prior biopsy Right axilla: No adenopathy of concern Left breast: Multi-positional exam fibrocystic changes, nipple discharge which was guaic positive for blood at 12:00 Left axilla: No adenopathy of concern Assessment and Plan Assessment: Impression: 1. Bilateral ultrasound core biopsies discordant recommended needle localization and excisional biopsy 2. Bloody left nipple discharge recommend duct exploration 3. Nicotine dependence however has decreased Plan: 1. Bilateral needle localization and excisional biopsy of discordant areas of core biopsy 2. Duct exploration on the left 3. Possible bilateral onco-plastic tissue transfer CC: Dr. Emilie Adams encounter 35 minutes; > 50% of time in planning and counselling Time with Patient: Greater than 30
== END | disposition home or self-care (01) ==
LOC: WWCWWP 13:25
PROVIDERS: ATTEND Surgery
DX: Z53.9 Procedure and treatment not carried out, unspecified reason (principal)

== ENCOUNTER → 2019-10-02 | Outpatient (CLI) | payer OTHER ==
[2019-10-02 15:07] VITALS: BP 123/80; PULSE 73; RESP 18; TEMP 98.6
--- NOTE | 2019-10-02 15:19 | P.PN ---
Subjective Progress Note Date: 10/02/19 Principal diagnosis: right breast lump, bilateral discordant core biopsies Jo is a 44 year old white female who was initially seen approximately a year ago. Approximately 2 years ago she had a right breast open biopsy for fibroadenoma. The patient since that time underwent a bilateral mammogram in May 2019. The mammogram revealed an area of concern in the left breast. 2 areas were noted on ultrasound only one was biopsied as on the day of biopsy the second one was felt to be a conglomeration of cysts. The second biopsy which was at the 1 o'clock position showed benign changes however the radiologist is considering this discordant and is recommending a needle localization and excisional biopsy on the left side. It should also be noted that on the right side an ultrasound was performed and an area of concern was identified at the 10 o'clock position and this was fibrocystic changes including sclerosing adenosis with calcifications, stromal fibrosis, and scar. This was also felt to be discordant and reviewed with radiology and needle localization and excision was recommended. The patient most recently is complaining of left breast bloody nipple discharge which occurred 2 weeks ago. She states that this occurred just before she was going to begin her menstrual period. Her breasts become engorged before that time. She has not had bloody discharge however from the left in the past. She also states that she noticed some yellow discharge from the right. There was no milky discharge. She is not noticing any discharge at the present time, however she noticed some yellow staining at the nipple site in both of her bras when she washes them. The patient has bilateral breast discomfort. It is more concentrated on the left side. It is on the lateral aspect of the breast. It is more noted at the time just before her period. On the right side the pain is shooting in nature through the nipple. It is intermittent and not cyclical on the right. The patient states approximately a week ago she noted a new area of nod ularity at the superior upper aspect of the right breast. This occurred right before her menstrual period started. It has not gone away. It is a dull ache in this area. Caffiene: decaf coffee smoke: 2-3 cigarettes/day was > 1/PPD, secondhand smoke, her boyfriend does smoke chocolate:none Does not use any control pills or hormones, no herbal supplements Family history: 1. sister: ovarian, and cervical 2. aunt maternal: breast, in early 50's 3. aunt, maternal: breast at 58 4. father: colon 5. maternal grandfather: bone marrow cancer, colon, breast cancer 6. paternal grandmother skin cancer Hormonal History: menarche: 13 , 2 miscarriages, first live : 29, breast fed: yes periods regular BCP: none hormones: none Past surgical history: 1. 3 / tubal ligation 2. Right breast biopsy 3. Cholecystectomy 4. Exploratory surgery secondary difficulty getting Medical history: Negative Social history: Smoking: One pack per day for 15 years Alcohol: Wine several times a week Drugs: negative - Constitutional Constitutional: Denies chills, Denies fever - EENT Eyes: denies blurred vision, denies pain Ears: deny: decreased hearing, tinnitus Ears, nose, mouth and throat: Denies headache, Denies sore throat - Breasts Breasts: bilateral: as per HPI - Cardiovascular Comment: Leaking heart valve Cardiovascular: Denies chest pain, Denies shortness of breath - Respiratory Respiratory: Denies cough, Denies 7 - Gastrointestinal Comment: History of diverticuli, patient has never had a colonoscopy Gastrointestinal: Denies abdominal pain, Denies diarrhea, Denies nausea, Denies vomiting - Genitourinary (Female) Genitourinary: Denies dysuria, Denies hematuria - Menstruation Menstruation: Reports period normal - Musculoskeletal Musculoskeletal: Denies myalgias - Integumentary Integumentary: Denies pruritus, Denies rash - Neurological Comment: 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 History of Any Multi-Drug Resistant Organisms: None Reported Past Surgical History: Section, Cholecystectomy, Tubal Ligation Additional Past Surgical History / Comment(s): X3, Past Anesthesia/Blood Transfusion Reactions: No Reported Reaction Past Psychological History: No Psychological Hx Reported Smoking Status: Current some day smoker Past Alcohol Use History: Occasional Additional Past Alcohol Use History / Comment(s): SMOKES 1 PPD. SMOKING SINCE 19 YEARS OLD. (APPROX 23 YEARS). 1-2 DRINKS PER WEEK. Past Drug Use History: None Reported - Past Family History Father Family Medical History: Cancer, COPD, Diabetes Mellitus Additional Family Medical History / Comment(s): on vent, crohns, skin cancer Mother Family Medical History: Hypertension Sister(s) Family Medical History: Cancer Additional Family Medical History / Comment(s): ovarian & cervical cancer Objective - Vital Signs Vital signs: Vital Signs Temp 98.6 F 10/02/19 15:04 Pulse 73 10/02/19 15:04 Resp 18 10/02/19 15:04 BP 123/80 10/02/19 15:04 Pulse Ox 99 10/02/19 15:04 Intake & Output 10/01/19 10/02/19 10/02/19 18:59 06:59 18:59 Weight 68.492 kg - Exam BMI 24.7 - Constitutional General appearance: Present: average body habitus - EENT Eyes: Present: EOMI ENT: Present: hearing grossly normal - Respiratory Respiratory: bilateral: CTA - Cardiovascular Rhythm: regular Heart sounds: normal: S1, S2 - Gastrointestinal General gastrointestinal: Present: soft - Integumentary Integumentary: Present: normal turgor - Musculoskeletal Musculoskeletal: Present: gait normal - Psychiatric Psychiatric: Present: A&O x's 3, appropriate affect, intact judgment & insight - Additional findings Additional findings: Breast exam: BRA: 38C inspection: Well-healed scar right breast, ptosis grade 2 bilateral Palpation: Right breast: Multiple positional exam fibrocystic changes, increased fibrocystic tissue in the 12 o'clock position on the chest wall no discrete dominant mass of concern Right axilla: No adenopathy of concern Left breast: Multiple positional exam fibrocystic changes, no dominant mass or nodule of concern Left axilla: No adenopathy of concern Assessment and Plan Assessment: Impression: 1. Discordant bilateral breast biopsies on core biopsy 2. fibrocystic breast changes 3. New area of increased tenderness/nodularity 12 o'clock position right breast Plan: 1. Bilateral needle localization excisional biopsy 2. Ultrasound area of increased nodularity 12:00 right breast CC: Emilie Adams Risks and benefits of operative procedure discussed with the patient, she understands and wishes to proceed. Risks include but are not limited to bleeding, infection, reaction to the anesthetic. Additionally risk of the clip migrating and not being removed at the time of biopsy. encounter 25 minutes, > 50% of time in planning and counselling
== END | disposition home or self-care (01) ==
LOC: WWCWWP 14:35
PROVIDERS: ATTEND Surgery
DX: Z53.9 Procedure and treatment not carried out, unspecified reason (principal)

== ENCOUNTER → 2019-10-05 | Outpatient (CLI) | payer OTHER ==
--- NOTE | 2019-10-05 10:54 | USB ---
Reason for exam: clinical finding. History: Family history of breast cancer in maternal aunt at age 56, breast cancer in maternal aunt at age 40, and breast cancer in maternal grandfather at age 80. Benign US biopsy breast VAD LT of the left breast, June 25, 2019. Benign US biopsy breast VAD RT of the right breast, June 01, 2019. Benign core biopsy of the right breast, November 07, 2018. Excisional biopsy of the right breast, 2017. Physical Findings: Nurse Summary: palpable lumps left breast 12 o'clock, 1 o'clock, right breast 7-8 o'clock, 10 o'clock and 12 o'clock, patient states left nipple bloody drainage x 1 months with expulsion, right yellow discharge x 1 month with expulsion (nurse TM). US Breast RT Right complete breast ultrasound includes all four quadrants, the retroareolar region and axilla. Finding demonstrates a 0.5 x 0.4 x 0.4cm oval, cystic lesion at 12 o'clock, a 0.3 x 0.4 x 0.2cm oval, complex, cystic lesion at 12 o'clock BB, a 0.6 x 0.4 x 0.5cm oval, complex, cystic lesion with debris at 1 o'clock, a 0.7 x 1.0 x 0.4cm oval, cystic, mixed lesion at 7 o'clock increased through transmission, likely debris filled cyst, a 0.3 x 0.3 x 0.3cm oval, cystic lesion at 10 o'clock BB and duct ectasia at the posterior nipple. Benign lymph node right axilla. These results were verbally communicated with the patient and result sheet given to the patient on 10/05/19. ASSESSMENT: Probably benign, BI-RAD 3 RECOMMENDATION: Ultrasound of the right breast in 6 months.
== END | disposition home or self-care (01) ==
LOC: RADUSWWP 09:26
PROVIDERS: ATTEND Surgery
DX: N63.10 Unspecified lump in the right breast, unspecified quadrant (principal)

== ENCOUNTER 2019-10-13 10:49 | Day surgery (SDC) | payer OTHER ==
[2019-10-09 15:14] VITALS: BMI 23.3
[~2019-10-13 10:49] MED LIST: ALPRAZolam 0.5 MG TAB PO PRN; DEXAMETHASONE SOD PHOSPHATE 10 MG/ML 1 ML VIAL IV ONE; HEPARIN SODIUM,PORCINE 5,000 UNIT/ML 1 ML VIAL SQ ONE; LACTATED RINGERS 1,000 ML IV SCH; ONDANSETRON 4 MG/2 ML VIAL IVP ONE; Pre Op ABX Message 1 EACH MISC MISCELLANE ONE
[2019-10-13 11:12] VITALS: RESP 16
[2019-10-13] MEDS ORDERED: LIDOCAINE 1% (10MG/ML) FOR IV START INTRADERMA ONE (11:20)
[2019-10-13] MEDS ORDERED: ALPRAZolam 0.5 MG TAB ONE (11:20)
[2019-10-13] MEDS ORDERED: ONDANSETRON 4 MG/2 ML VIAL ONE (11:33)
[2019-10-13] MEDS ORDERED: HEPARIN SODIUM,PORCINE 5,000 UNIT/ML 1 ML VIAL ONE (11:34)
[2019-10-13] MEDS ORDERED: LIDOCAINE 1% INJ 10MG/ML (20 ML MDV) SQ ONE ×2 (12:10→17:06)
[2019-10-13 13:50] LABS: Glucose,Whole Blood 96 mg/dL (75-99)
[2019-10-13] MEDS ORDERED: HYDROmorphone (PF) 1 MG/ML ONE (15:09)
[2019-10-13] MEDS ORDERED: MIDAZOLAM 2 MG/2 ML VIAL ONE (15:09)
[2019-10-13] MEDS ORDERED: fentaNYL (PF) 50 MCG/ML 2 ML AMP ONE (15:09)
[2019-10-13] MEDS ORDERED: LIDOCAINE 1% INJ 10MG/ML (20 ML MDV) ONE (15:09)
[2019-10-13] MEDS ORDERED: PROPOFOL 10 MG/ML 20 ML VIAL IV ONE (15:09)
--- NOTE | 2019-10-13 17:19 | P.OP ---
Date of Procedure: 10/13/19 Preoperative Diagnosis: Bilateral discordant core biopsies of the breast/ UOQ Postoperative Diagnosis: same Procedure(s) Performed: Bilateral needle localization excisional biopsy/partial mastectomies via crescent mastopexy Anesthesia: REJI Surgeon: Nichole Chang Estimated Blood Loss (ml): 15 IV fluids (ml): 900 Pathology: other (breast tissue) Condition: stable Disposition: same day Indications for Procedure: Bilateral core biopsies felt to be discordant Operative Findings: Dense breast tissue/radiograph the specimens revealed the area of concern had been removed Description of Procedure: Lanie is a 44-year-old white female who had undergone bilateral core biopsy which was felt to be discordant and she was recommended to undergo bilateral needle localization and excisional biopsy. This was performed via bilateral mastopexy incisions. She understands the risks and benefits and wished to proceed. In the preoperative holding area ptosis which was noted to be grade 2 in anticipated asymmetry were assessed with the patient in the upright position. Bilateral breast skin markings were placed. Close measurement and marking of the intended medial position of the bilateral nipple areolar complex and extent of skin resection were marked. The elevation of the areolar was approximately 2-1/2 cm on each side. The left breast was approached initially. Patient was in the upper outer quadrant. An incision was made in the skin was scored for a crescent mastopexy incision on the left. A second incision was made at the nipple areolar complex. The skin within this crescent was de-epithelialized. A curvilinear incision was made within the de-epithelialized izone adjacent to the planned partial mastectomy. Dissection was performed in the subcutaneous anterior mammary fascial plane towards the target lesion. Circumferential dissection around the targeted lesion was performed. The specimen was removed and painted for orientation. Specimen radiograph confirmed the target in the margins were obtained. The wound was irrigated. Hemostasis was secured and surgical clips of titanium were placed to diane the tumor bed. Surgicel and pyriform was placed. The deep tissues were closed using 3-0 Vicryl suture. This was followed by closure of the skin using a 3-0 Vicryl suture followed by a 4-0 Monocryl. The right breast was then approached. The patient was in the upper quadrant. An incision was made and the skin was scored for a crescent mastopexy incision on the right. A second incision was made at the nipple areolar complex. The skin within this crescent was de-epithelialized. A curvilinear incision was made within the de-epithelialized izone adjacent to the planned partial mastectomy. Dissection was performed in the subcutaneous anterior mammary fascial plane towards the target lesion. Circumferential dissection around the targeted lesion was performed. The specimen was removed and painted for orientation. Specimen radiograph confirmed the target in the margins were obtained. The wound was irrigated. Hemostasis was secured and surgical clips of titanium were placed to diane the tumor bed. Surgicel and pyriform was placed. The deep tissues were closed using 3-0 Vicryl suture. This was followed by closure of the skin using a 3-0 Vicryl suture followed by a 4-0 Monocryl. The operating table was adjusted at the end of the case to bring the patient into a semi-seated position. The breast nipple areolar location/and breast symmetry appeared to be symmetric. All instrument and sponge counts were correct at the end of the case. The patient tolerated the procedure in stable condition.
--- NOTE | 2019-10-13 17:22 | P.DS ---
Providers Attending physician: Nichole Chang Primary care physician: Emilie Adams Plan - Discharge Summary Discharge Rx Participant: Yes New Discharge Prescriptions: No Action No Known Home Medications Discharge Medication List No Known Home Medications 05/26/19 [History] Follow up Appointment(s)/Referral(s): Nichole Chang MD [STAFF PHYSICIAN] - 1 Week Activity/Diet/Wound Care/Special Instructions: do not drive until seen by Dr. Andersen may shower after 48 hours wear bra at all times Discharge Disposition: HOME SELF-CARE
[2019-10-13 17:28] VITALS: TEMP 98.8
[2019-10-13] MEDS: HYDROmorphone 0.5 MG/0.5 ML SYRINGE IVP PRN ×2 (17:35→17:45)
[2019-10-13 18:11] VITALS: PULSE 98
[2019-10-13 18:22] VITALS: BP 149/88
--- NOTE | 2019-10-14 07:11 | MM ---
EXAMINATION TYPE: MG pre op needle loc RT, MG surgical specimen RT DATE OF EXAM: 10/13/2019 12:51 PM COMPARISON: NONE HISTORY: R92.8 abn mammo Informed consent was obtained and all the patient's questions were answered. The lesion in question was localized mammographically. The standard sterile technique was utilized, as well as appropriate local anesthesia with 1% Lidocaine and bicarbonate. Localization needle followed by placement of a guidewire was performed under mammographic guidance. Verification images demonstrate appropriate deployment of the guidewire. The patient tolerated the procedure well and left the department in stable condition. Specimen radiograph demonstrates the clip in question to reside within the specimen. IMPRESSION: Successful needle localization and open biopsy right breast with pathology results pending . Pathology Results: Benign A. LEFT BREAST, NEEDLE LOCALIZATION BIOPSY: Fibrocystic spectrum disease with sclerosing adenosis, duct metaplasia, focal duct ectasia and areas of PASH. Intraductal mineralizations abound. B. RIGHT BREAST, NEEDLE LOCALIZATION BIOPSY: Sclerosing adenosis, duct metaplasia, focal prior biopsy sight changes and usual type duct hyperplasia with abundant mineralizations. Recommendation Follow up mammogram of both breasts in 6 months. BIANCA
--- NOTE | 2019-10-14 07:12 | MM ---
EXAMINATION TYPE: MG surgical specimen LT, MG pre op needle loc LT DATE OF EXAM: 10/13/2019 4:28 PM COMPARISON: NONE HISTORY: R98.2 abn mammo Informed consent was obtained and all the patient's questions were answered. The lesion in question was localized mammographically. The standard sterile technique was utilized, as well as appropriate local anesthesia with 1% Lidocaine and bicarbonate. Localization needle followed by placement of a guidewire was performed under mammographic guidance. Verification images demonstrate appropriate deployment of the guidewire. The patient tolerated the procedure well and left the department in stable condition. Specimen radiograph demonstrates the clip in question to reside within the specimen. IMPRESSION: Successful needle localization and open biopsy left breast with pathology results pending . Pathology Results: Benign A. LEFT BREAST, NEEDLE LOCALIZATION BIOPSY: Fibrocystic spectrum disease with sclerosing adenosis, duct metaplasia, focal duct ectasia and areas of PASH. Intraductal mineralizations abound. B. RIGHT BREAST, NEEDLE LOCALIZATION BIOPSY: Sclerosing adenosis, duct metaplasia, focal prior biopsy sight changes and usual type duct hyperplasia with abundant mineralizations. Recommendation Follow up mammogram of both breasts in 6 months. BIANCA
== END 2019-10-13 18:33 | disposition home or self-care (01) ==
LOC: OR 10:49
PROVIDERS: ATTEND Surgery
DX: N60.12 Diffuse cystic mastopathy of left breast (principal); N64.89 Other specified disorders of breast; N60.11 Diffuse cystic mastopathy of right breast; F17.210 Nicotine dependence, cigarettes, uncomplicated; Z77.22 Contact with and (suspected) exposure to environmental tobacco smoke (acute) (chronic); Z98.51 Tubal ligation status; Z90.49 Acquired absence of other specified parts of digestive tract; Z98.890 Other specified postprocedural states; G43.909 Migraine, unspecified, not intractable, without status migrainosus; K57.90 Diverticulosis of intestine, part unspecified, without perforation or abscess without bleeding; I38 Endocarditis, valve unspecified; Z83.3 Family history of diabetes mellitus; Z82.49 Family history of ischemic heart disease and other diseases of the circulatory system; Z83.79 Family history of other diseases of the digestive system; Z80.8 Family history of malignant neoplasm of other organs or systems; Z80.41 Family history of malignant neoplasm of ovary; Z80.49 Family history of malignant neoplasm of other genital organs; Z91.09 Other allergy status, other than to drugs and biological substances
CPT/HCPCS: 19316; 19301; 81025; 88307; 76098 ×2; J2250; J1644; J1100; J2405; J2001; J3010; J1170 ×2; J2704

== ENCOUNTER → 2019-10-22 | Outpatient (CLI) | payer OTHER ==
[2019-10-09 14:10] VITALS: BMI 23.3
--- NOTE | 2019-10-22 12:58 | P.PN ---
Progress Note - Text Progress Note Date: 10/22/19 Lanie is a 44-year-old white female status post bilateral breast biopsies on . Pathology was benign fibrocystic disease bilaterally. The patient has done well postop with no complaints. She has not had any fever or chills. No evidence of any infection. Physical exam: Lungs: Clear Heart: Regular rate and rhythm Bilateral breast incisions clean and dry no evidence of infection Impression: Status post bilateral needle localization and excisional biopsy pathology fibrocystic disease Plan: 1. Bilateral mammogram in 6 months with physician exam at that time CC: Emilie Adams
[2019-10-23 02:23] VITALS: BP 112/77; PULSE 95; RESP 18; TEMP 98.8
== END | disposition home or self-care (01) ==
LOC: WWCWWP 12:45
PROVIDERS: ATTEND Surgery
DX: Z53.9 Procedure and treatment not carried out, unspecified reason (principal)

== ENCOUNTER → 2020-04-13 | Outpatient (CLI) | payer OTHER ==
--- NOTE | 2020-04-18 09:49 | MM ---
Reason for exam: follow-up at short interval from prior study. Last mammogram was performed 10 months ago. History: Family history of breast cancer in maternal aunt at age 56, breast cancer in maternal aunt at age 40, and breast cancer in maternal grandfather at age 80. Benign MG pre op needle loc LT of the left breast, October 13, 2019. Benign MG pre op needle loc RT of the right breast, October 13, 2019. Benign US biopsy breast VAD LT of the left breast, June 25, 2019. Benign US biopsy breast VAD RT of the right breast, June 01, 2019. Benign core biopsy of the right breast, November 07, 2018. Excisional biopsy of the right breast, 2017. Physical Findings: Nurse Summary: 2cm nodule in the right breast (nurse destin). MG 3D Diag Mammo W/Cad WILL Bilateral CC and MLO view(s) were taken. Prior study comparison: October 05, 2019, right breast US breast RT. June 25, 2019, left breast MG diagnostic mammo LT wo CAD. June 01, 2019, right breast MG diagnostic mammo RT wo CAD. August 18, 2018, mammogram, performed at [facility]. Post excision changes on both sides. Palpable marker posterior right CC view. Vague nodularity central posterior and medial left CC views without MLO correlate. These results were verbally communicated with the patient and result sheet given to the patient on 04/13/20. ASSESSMENT: Incomplete: need additional imaging evaluation, BI-RAD 0 RECOMMENDATION: Ultrasound of both breasts. (right palpable, left 6-12 o'clock)
--- NOTE | 2020-04-18 09:54 | USB ---
Reason for exam: additional evaluation requested from abnormal screening. History: Family history of breast cancer in maternal aunt at age 56, breast cancer in maternal aunt at age 40, and breast cancer in maternal grandfather at age 80. Benign MG pre op needle loc LT of the left breast, October 13, 2019. Benign MG pre op needle loc RT of the right breast, October 13, 2019. Benign US biopsy breast VAD LT of the left breast, June 25, 2019. Benign US biopsy breast VAD RT of the right breast, June 01, 2019. Benign core biopsy of the right breast, November 07, 2018. Excisional biopsy of the right breast, 2017. US Breast Limited BILAT Right limited breast ultrasound including focal area of concern, retroareolar and axilla demonstrates a 0.6 x 0.5 x 0.5cm cystic cluster at 1 o'clock, right o'clock peripherally at palpable site shown no abnormality and a 0.9 x 0.4 x 0.7cm cystic cluster at 7 o'clock. Left limited breast ultrasound including focal area of concern, retroareolar and axilla demonstrates a 0.9 x 0.6 x 1.1cm complex cystic lesion or cluster at 7 o'clock versus 8 x 6 x 4mm on 06/01/16, 6 months follow up recommended, a 0.7 x 0.4 x 0.5cm cystic cluster at 7 o'clock and a 0.6 x 0.4 x 0.7cm cystic cluster at 9 o'clock. Scanned right breast 12-3 o'clock or 1 o'clock palpable area and 6-9 o'clock for pain. Scanned left breast 6-12 o'clock. These results were verbally communicated with the patient and result sheet given to the patient on 04/13/20. ASSESSMENT: Probably benign, BI-RAD 3 RECOMMENDATION: Follow-up diagnostic mammogram and ultrasound of the left breast in 6 months. (attention 7 o'clock)
== END | disposition home or self-care (01) ==
LOC: RADMAMWWP 14:35
PROVIDERS: ATTEND Surgery
DX: R92.8 Other abnormal and inconclusive findings on diagnostic imaging of breast (principal)
CPT/HCPCS: 77066; 76642; G0279; 77062

== ENCOUNTER → 2020-04-22 | Outpatient (CLI) | payer OTHER ==
[2020-04-22 14:55] VITALS: BP 129/86; PULSE 78; RESP 18; TEMP 98.5
--- NOTE | 2020-04-22 15:20 | P.PN ---
Subjective Progress Note Date: 04/22/20 Principal diagnosis: fiborcystic breast changes abnormal ultrasound of both breast Lanie is a 45 -year-old white female who [place] [address]. 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 The patient most recently had a bilateral mammogram and bilateral ultrasound on 190672. These revealed in the right breast a 0.9 cm cystic cluster at 7:00. In the left breast a 1.1 complex cystic cluster at 7:00 area 0.7 cm cystic cluster at 9:00. It was felt to be probably benign BIRADS 3 the follow up diagnostic mammogram and ultrasound of the left breast in 6 months time attention to 7 o'clock position was recommended. She feels nodularity in the right breast at the 12 o'clock area and laterally. She does not feel anything of concern in the left breast. She is not complaining of any nipple discharge. She does complain of pain in the right nipple which occurs sporadically. Caffeine: One cup of coffee per day Nicotine: Occasional; she is exposed to secondhand smoke reinaldo-bromine: Occasional Hormones: none Family history: 1. sister: ovarian, and cervical 2. aunt maternal: breast, in early 50's 3. aunt, maternal: breast at 58 4. father: colon 5. maternal grandfather: bone marrow cancer, colon, breast cancer 6. paternal grandmother skin cancer Hormonal History: menarche: 13 , 2 miscarriages, first live : 29, breast fed: yes periods regular BCP: none hormones: none Past surgical history: 1. 3 / tubal ligation 2. Right breast biopsy 3. Cholecystectomy 4. Exploratory surgery secondary difficulty getting 5. cervical discectomy Medical history: Negative Social history: Smokin PPP/week Alcohol: Wine several times a week Drugs: negative - Constitutional Constitutional: Denies chills, Denies fever - EENT Eyes: denies blurred vision, denies pain Ears: deny: decreased hearing, tinnitus Ears, nose, mouth and throat: Denies headache, Denies sore throat - Breasts Breasts: bilateral: as per HPI - Cardiovascular Comment: Leaking heart valve Cardiovascular: Denies chest pain, Denies shortness of breath - Respiratory Respiratory: Denies cough, - Gastrointestinal Comment: History of diverticuli, patient has never had a colonoscopy Gastrointestinal: Denies abdominal pain, Denies diarrhea, Denies nausea, Denies vomiting - Genitourinary (Female) Genitourinary: Denies dysuria, Denies hematuria - Menstruation Menstruation: Reports period normal - Musculoskeletal Musculoskeletal: cervical disc disease - Integumentary Integumentary: Denies pruritus, Denies rash - Neurological Comment: 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, 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 Neurological: Denies numbness, Denies weakness - Psychiatric Psychiatric: Denies anxiety, Denies depression - Endocrine Endocrine: Denies fatigue, Denies weight change - Hematologic/Lymphatic Comment: none - Allergic/Immunologic Allergic/Immunologic: Reports as per HPI Objective - Vital Signs Vital signs: Vital Signs Temp 98.5 F 04/22/20 14:50 Pulse 78 04/22/20 14:50 Resp 18 04/22/20 14:50 BP 129/86 04/22/20 14:50 Pulse Ox 99 04/22/20 14:50 Intake & Output 04/21/20 04/22/20 04/22/20 18:59 06:59 18:59 Weight 63.503 kg - Exam BMI 22.9 - Constitutional General appearance: Present: average body habitus - EENT ENT: Present: hearing grossly normal - Neck Neck: Present: normal ROM - Respiratory Respiratory: bilateral: CTA - Cardiovascular Rhythm: regular Heart sounds: normal: S1, S2 - Gastrointestinal General gastrointestinal: Present: soft - Integumentary Integumentary: Present: normal turgor - Musculoskeletal Musculoskeletal: Present: gait normal - Psychiatric Psychiatric: Present: A&O x's 3, appropriate affect - Additional findings Additional findings: breast exam: BRA 38C inspection: Grade 2 ptosis bilateral, well-healed scars bilateral from prior surgery Palpation: Right breast: Multiple positional exam fibrocystic changes, no dominant masses or nodules of concern Right axilla: No adenopathy of concern Left breast: Multiple positional exam fibrocystic changes, no dominant masses or nodules of concern Left axilla: No adenopathy of concern Assessment and Plan Assessment: Impression: 1. Fibrocystic breast changes 2. Radiographic abnormality left breast 3. Patient drinks caffeinated beverages and is exposed to secondhand smoke 4. At this time the patient does not have any lesions to warrant interventional biopsy Plan: 1. Encouraged patient to abstain from caffeine 2. Continue to encourage patient to abstain from nicotine 3. Repeat left breast mammogram and ultrasound in 6 months CC: Dr. Rock Bhatt encounter 15 minutes, > 59% of time in planing and counselling
== END | disposition home or self-care (01) ==
LOC: WWCWWP 14:17
PROVIDERS: ATTEND Surgery
DX: Z53.9 Procedure and treatment not carried out, unspecified reason (principal)

== ENCOUNTER → 2020-10-12 | Outpatient (CLI) | payer OTHER ==
--- NOTE | 2020-10-12 13:48 | MM ---
Reason for exam: follow-up at short interval from prior study. Last mammogram was performed 6 months ago. History: Family history of breast cancer in maternal aunt at age 56, breast cancer in maternal aunt at age 40, and breast cancer in maternal grandfather at age 80. Benign MG pre op needle loc LT of the left breast, October 13, 2019. Benign MG pre op needle loc RT of the right breast, October 13, 2019. Benign US biopsy breast VAD LT of the left breast, June 25, 2019. Benign US biopsy breast VAD RT of the right breast, June 01, 2019. Benign core biopsy of the right breast, November 07, 2018. Excisional biopsy of the right breast, 2017. Physical Findings: Nurse did not find any significant physical abnormalities on exam. MG 3D Diag Mammo W/Cad LT CC and ML view(s) were taken of the left breast. Prior study comparison: April 13, 2020, bilateral MG 3d diag mammo w/cad WILL. June 25, 2019, left breast MG diagnostic mammo LT wo CAD. There is no discrete abnormality including area of concern left nodules. Post biopsy changes left upper outer quadrant. These results were verbally communicated with the patient and result sheet given to the patient on 10/12/20. ASSESSMENT: Incomplete: need additional imaging evaluation, BI-RAD 0 RECOMMENDATION: Ultrasound of both breasts. (palpables)
--- NOTE | 2020-10-12 13:59 | USB ---
Reason for exam: additional evaluation requested from abnormal screening. History: Family history of breast cancer in maternal aunt at age 56, breast cancer in maternal aunt at age 40, and breast cancer in maternal grandfather at age 80. Benign MG pre op needle loc LT of the left breast, October 13, 2019. Benign MG pre op needle loc RT of the right breast, October 13, 2019. Benign US biopsy breast VAD LT of the left breast, June 25, 2019. Benign US biopsy breast VAD RT of the right breast, June 01, 2019. Benign core biopsy of the right breast, November 07, 2018. Excisional biopsy of the right breast, 2016. US Breast Limited BILAT Right limited breast ultrasound including focal area of concern, retroareolar and axilla demonstrates a 0.5 x 0.5 x 0.3cm oval, cystic, simple cyst at 1 o'clock, a 0.4 x 0.5 x 0.3cm oval, irregular, hypoechoic, fibrocystic lesion at 12:30, a 0.5 x 0.6 x 0.4cm irregular, hypoechoic, fibrocystic lesion at 1 o'clock and a 2.3 x 1.3 x 0.8cm lymph node at the axilla. Left limited breast ultrasound including focal area of concern, retroareolar and axilla demonstrates a 0.4 x 0.4 x 0.2cm oval, irregular, cystic, simple cyst at 6 o'clock, a 0.5 x 0.7 x 0.3cm irregular, hypoechoic, fibrocystic lesion at 7 o'clock, ductal dilation at 8 o'clock, a 1.1 x 0.8 x 0.8cm oval, cystic cluster at 8 o'clock, mild ductal dilation at 9 o'clock, a 0.5 x 0.5 x 0.3cm oval, irregular, complex cyst at 10 o'clock, a 0.5 x 0.5 x 0.2cm oval, simple cyst at 11 o'clock and at lymph node at the axilla. These results were verbally communicated with the patient and result sheet given to the patient on 10/12/20. ASSESSMENT: Probably benign, BI-RAD 3 RECOMMENDATION: Follow-up diagnostic mammogram and ultrasound of both breasts in 6 months.
== END | disposition home or self-care (01) ==
LOC: RADMAMWWP 10:12
PROVIDERS: ATTEND Surgery
DX: R92.8 Other abnormal and inconclusive findings on diagnostic imaging of breast (principal)
CPT/HCPCS: 77065; 76642; G0279; 77061

== ENCOUNTER → 2020-10-20 | Outpatient (CLI) | payer OTHER ==
[2020-10-20 14:31] VITALS: BP 119/81; PULSE 67; RESP 18; TEMP 98.2
--- NOTE | 2020-10-20 14:59 | P.PN ---
Subjective Progress Note Date: 10/20/20 Principal diagnosis: Fibrocystic breast changes Lanie is a 45 -year-old white female who [place] [address]. The left breast revealed PASH, the right breast revealed sclerosing adenosis duct metaplasia focal prior biopsy si te changes and usual type duct hyperplasia with abundant mineralization's. The patient had a bilateral mammogram and bilateral ultrasound on 332353. These revealed in the right breast a 0.9 cm cystic cluster at 7:00. In the left breast a 1.1 complex cystic cluster at 7:00 area 0.7 cm cystic cluster at 9:00. It was felt to be probably benign BIRADS 3 and follow up diagnostic mammogram and ultrasound of the left breast in 6 months time attention to 7 o'clock position was recommended. She had a repeat left breast mammogram performed on 3020. This did not reveal any discrete abnormality postbiopsy changes were noted in the left upper outer quadrant. Ultrasound of both breasts were performed and reveals revealed bilateral fibrocystic changes. This was felt to be probably benign BIRADS 3 and follow up diagnostic mammogram and ultrasound of both breasts in 6 months was recommended. She is not complaining of any new lumps masses or nodules of concern in either breast. She is not complaining of any nipple discharge or skin changes. Caffeine: One cup of coffee per day Nicotine: Occasional; she is exposed to secondhand smoke reinaldo-bromine: Occasional Hormones: none Family history: 1. sister: ovarian, and cervical 2. aunt maternal: breast, in early 50's 3. aunt, maternal: breast at 58 4. father: colon 5. maternal grandfather: bone marrow cancer, colon, breast cancer 6. paternal grandmother skin cancer Hormonal History: menarche: 13 , 2 miscarriages, first live : 29, breast fed: yes periods regular BCP: none hormones: none Past surgical history: 1. 3 / tubal ligation 2. Right breast biopsy 3. Cholecystectomy 4. Exploratory surgery secondary difficulty getting 5. cervical discectomy 6. umbilical hernia repair Medical history: Negative Social history: Smokin PPP/week Alcohol: Wine several times a week Drugs: negative - Constitutional Constitutional: Denies chills, Denies fever - EENT Eyes: denies blurred vision, denies pain Ears: deny: decreased hearing, tinnitus Ears, nose, mouth and throat: Denies headache, Denies sore throat - Breasts Breasts: bilateral: as per HPI - Cardiovascular Comment: Leaking heart valve Cardiovascular: Denies chest pain, Denies shortness of breath - Respiratory Respiratory: Denies cough, - Gastrointestinal Comment: History of diverticuli, patient has never had a colonoscopy Gastrointestinal: Denies abdominal pain, Denies diarrhea, Denies nausea, Denies vomiting - Genitourinary (Female) Genitourinary: Denies dysuria, Denies hematuria - Menstruation Menstruation: Reports period normal - Musculoskeletal Musculoskeletal: cervical disc disease - Integumentary Integumentary: Denies pruritus, Denies rash - Neurological Comment: 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, 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 Neurological: Denies numbness, Denies weakness - Psychiatric Psychiatric: Denies anxiety, Denies depression - Endocrine Endocrine: Denies fatigue, Denies weight change - Hematologic/Lymphatic Comment: none - Allergic/Immunologic Allergic/Immunologic: Reports as per HPI Objective - Vital Signs Vital signs: Vital Signs Temp 98.2 F 10/20/20 14:26 Pulse 67 10/20/20 14:26 Resp 18 10/20/20 14:26 BP 119/81 10/20/20 14:26 Pulse Ox 98 10/20/20 14:26 Intake & Output 10/19/20 10/20/20 10/20/20 18:59 06:59 18:59 Weight 63.503 kg - Exam BMI 22.9 - Constitutional General appearance: Present: average body habitus - EENT Eyes: Present: EOMI ENT: Present: hearing grossly normal - Neck Neck: Present: normal ROM - Respiratory Respiratory: bilateral: CTA - Cardiovascular Heart sounds: normal: S1, S2 - Integumentary Integumentary: Present: normal turgor - Musculoskeletal Musculoskeletal: Present: gait normal - Psychiatric Psychiatric: Present: A&O x's 3, appropriate affect, intact judgment & insight - Additional findings Additional findings: Breast Exam: Bra: 38C inspection: Well-healed scars bilateral breast grade 1 ptosis Palpation: Right breast: There is postop change in the right breast but no dominant masses or nodules of concern fibrocystic changes and multiple positional exam Right axilla: No adenopathy of concern Left breast: Multiple positional exam fibrocystic changes no dominant masses or nodules of concern Left axilla: No adenopathy of concern Assessment and Plan Assessment: Impression/Plan: 1. Bilateral fibrocystic breast changes 2. Patient to undergo bilateral mammogram and ultrasound of both breasts in 6 months 3. Patient to call sooner if any questions or concerns Cc: Dr. Wilkerson
== END ==
LOC: WWCWWP 14:05
PROVIDERS: ATTEND Surgery
DX: N60.11 Diffuse cystic mastopathy of right breast (principal); N60.12 Diffuse cystic mastopathy of left breast; F17.210 Nicotine dependence, cigarettes, uncomplicated; Z91.048 Other nonmedicinal substance allergy status; Z91.030 Bee allergy status

== ENCOUNTER → 2021-04-17 | Outpatient (CLI) | payer OTHER ==
--- NOTE | 2021-04-18 08:54 | MM ---
Reason for exam: follow-up at short interval from prior study. Last mammogram was performed 6 months ago. History: Family history of breast cancer in maternal aunt at age 56, breast cancer in maternal aunt at age 40, and breast cancer in maternal grandfather at age 67. Benign MG pre op needle loc LT of the left breast, October 13, 2019. Benign MG pre op needle loc RT of the right breast, October 13, 2019. Benign US biopsy breast VAD LT of the left breast, June 25, 2019. Benign US biopsy breast VAD RT of the right breast, June 01, 2019. Benign core biopsy of the right breast, November 07, 2018. Excisional biopsy of the right breast, 2017. Physical Findings: Nurse did not find any significant physical abnormalities on exam. MG 3D Diag Mammo W/Cad WILL Bilateral CC and MLO view(s) were taken. Prior study comparison: October 12, 2020, left breast MG 3d diag mammo w/cad LT. April 13, 2020, bilateral MG 3d diag mammo w/cad WILL. The breast tissue is heterogeneously dense. This may lower the sensitivity of mammography. Finding #1: There is known architectural distortion in the upper outer quadrant, middle position of both breasts consistent with known excisional changes, greater in the right breast. Finding #2: There are typically benign round calcifications in both breasts. There is no discrete abnormality. These results were verbally communicated with the patient and result sheet given to the patient on 04/17/21. ASSESSMENT: Benign, BI-RAD 2 RECOMMENDATION: Routine screening mammogram of both breasts in 1 year.
--- NOTE | 2021-04-18 10:34 | USB ---
Reason for exam: follow-up at short interval from prior study. History: Family history of breast cancer in maternal aunt at age 56, breast cancer in maternal aunt at age 40, and breast cancer in maternal grandfather at age 67. Benign MG pre op needle loc LT of the left breast, October 13, 2019. Benign MG pre op needle loc RT of the right breast, October 13, 2019. Benign US biopsy breast VAD LT of the left breast, June 25, 2019. Benign US biopsy breast VAD RT of the right breast, June 01, 2019. Benign core biopsy of the right breast, November 07, 2018. Excisional biopsy of the right breast, 2017. US Breast Limited BILAT Right limited breast ultrasound including focal area of concern, retroareolar and axilla demonstrates a 0.6 x 0.4 x 0.6cm round, lobular, stable lesion at 1 o'clock, debris filled cyst. Left limited breast ultrasound including focal area of concern, retroareolar and axilla demonstrates a 0.7 x 0.5 x 0.7cm round, lobular lesion at 8 o'clock, decreased in size from prior, consistent with debris filled cyst. These results were verbally communicated with the patient and result sheet given to the patient on 04/17/21. ASSESSMENT: Benign, BI-RAD 2 RECOMMENDATION: Routine screening mammogram of both breasts in 1 year.
== END | disposition home or self-care (01) ==
LOC: RADMAMWWP 13:18
PROVIDERS: ATTEND Surgery
DX: R92.8 Other abnormal and inconclusive findings on diagnostic imaging of breast (principal)
CPT/HCPCS: 77066; 76641; G0279; 77062

== ENCOUNTER → 2021-04-21 | Outpatient (CLI) | payer OTHER ==
[2021-04-21 14:51] VITALS: BP 118/76; PULSE 75; RESP 18; TEMP 98.3
--- NOTE | 2021-04-21 15:07 | P.PN ---
Subjective Progress Note Date: 04/21/21 Principal diagnosis: Bilateral fibrocystic breast changes Fibrocystic breast changes Lanie is a 46 -year-old white female who [place] [address]. 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 The patient had a bilateral mammogram and bilateral ultrasound on [id number]. These revealed in the right breast a 0.9 cm cystic cluster at 7:00. In the left breast a 1.1 complex cystic cluster at 7:00 area 0.7 cm cystic cluster at 9:00. It was felt to be probably benign BIRADS 3 and follow up diagnostic mammogram and ultrasound of the left breast in 6 months time attention to 7 o'clock position was recommended. She had a bilateral mammogram on 04-17-21 and bilateral breast ultrasound on 04-17-21 both were benign BIRAD 2. She is not complaining of any new lumps masses or nodules of concern in either breast. She is not complaining of any nipple discharge or skin changes. Caffeine: One cup of coffee per day Nicotine: Occasional; she is exposed to secondhand smoke reinaldo-bromine: Occasional Hormones: none Family history: 1. sister: ovarian, and cervical 2. aunt maternal: breast, in early 50's 3. aunt, maternal: breast at 58 4. father: colon 5. maternal grandfather: bone marrow cancer, colon, breast cancer 6. paternal grandmother skin cancer Hormonal History: menarche: 13 , 2 miscarriages, first live : 29, breast fed: yes periods regular BCP: none hormones: none Past surgical history: 1. 3 / tubal ligation 2. Right breast biopsy 3. Cholecystectomy 4. Exploratory surgery secondary difficulty getting 5. cervical discectomy 6. umbilical hernia repair Medical history: Negative Social history: Smokin PPP/week Alcohol: Wine several times a week Drugs: negative - Constitutional Constitutional: Denies chills, Denies fever - EENT Eyes: denies blurred vision, denies pain Ears: deny: decreased hearing, tinnitus Ears, nose, mouth and throat: Denies headache, Denies sore throat - Breasts Breasts: bilateral: as per HPI - Cardiovascular Comment: Leaking heart valve Cardiovascular: Denies chest pain, Denies shortness of breath - Respiratory Respiratory: Denies cough, - Gastrointestinal Comment: History of diverticuli, patient has never had a colonoscopy Gastrointestinal: Denies abdominal pain, Denies diarrhea, Denies nausea, Denies vomiting - Genitourinary (Female) Genitourinary: Denies dysuria, Denies hematuria - Menstruation Menstruation: Reports period normal - Musculoskeletal Musculoskeletal: cervical disc disease - Integumentary Integumentary: Denies pruritus, Denies rash - Neurological Comment: 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, 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 Neurological: Denies numbness, Denies weakness - Psychiatric Psychiatric: Denies anxiety, Denies depression - Endocrine Endocrine: Denies fatigue, Denies weight change - Hematologic/Lymphatic Comment: none - Allergic/Immunologic Allergic/Immunologic: Reports as per HPI Objective - Vital Signs Vital signs: Vital Signs Temp 98.3 F 04/21/21 14:47 Pulse 75 04/21/21 14:47 Resp 18 04/21/21 14:47 BP 118/76 04/21/21 14:47 Pulse Ox 97 04/21/21 14:47 Intake & Output 04/20/21 04/21/21 04/21/21 18:59 06:59 18:59 Weight 68.039 kg - Exam BMI 24.6 - Constitutional General appearance: Present: cooperative - EENT Eyes: Present: EOMI ENT: Present: hearing grossly normal - Neck Neck: Present: normal ROM - Respiratory Respiratory: bilateral: CTA - Cardiovascular Rhythm: regular Heart sounds: normal: S1, S2 - Gastrointestinal General gastrointestinal: Present: soft - Integumentary Integumentary: Present: normal turgor - Musculoskeletal Musculoskeletal: Present: gait normal - Psychiatric Psychiatric: Present: A&O x's 3, appropriate affect, intact judgment & insight - Additional findings Additional findings: Breast Exam: BRA: 38C Specimen: Bilateral postop changes Palpation: Right breast: Multi-positional exam fibrocystic changes and postop changes no dominant masses or nodules of concern Right axilla: No adenopathy of concern Left breast: Multi-positional exam fibrocystic changes no dominant masses or nodules of concern Left axilla: No adenopathy of concern Assessment and Plan Assessment: Impression: Fibrocystic breast changes Recent bilateral mammogram and ultrasound April 17, 2021 benign BIRADS 2 Plan: Repeat bilateral mammogram in 1 year with physician exam at that time CC: Emilie Adams
== END | disposition home or self-care (01) ==
LOC: WWCWWP 14:37
PROVIDERS: ATTEND Surgery
DX: Z53.9 Procedure and treatment not carried out, unspecified reason (principal)

== ENCOUNTER → 2021-11-15 | Outpatient (CLI) | payer OTHER ==
[2021-11-15 10:00] VITALS: BP 149/89; PULSE 74; RESP 17; TEMP 97.9
--- NOTE | 2021-11-15 13:12 | P.HPOB ---
History of Present Illness H&P Date: 11/15/21 Chief Complaint: The patient is here for her routine gynecologic exam. This is a 46-year-old 0-3 with an LMP of 10/29/2021. She is status post tubal ligation. She has noticed occasional slight menstrual irregularity during the past year. During 2 months of the year she had 2 menstrual periods, the most recent being this month. She also had 1 menstrual period that was prolonged and lasted more than 2 weeks. She denies hot flashes. She has experienced occasional dyspareunia and can also notice some pelvic discomfort after sex on those occasions. She denies vaginal dryness. Her last Pap smear on 11/25/2018 showed ASCUS with negative high-risk HPV testing. She was previously offered cancer genetic counseling and testing, but at that time her insurance did not cover it. She has new insurance and is interested in being referred for cancer genetic counseling and testing. Review of Systems The patient has gained 11 pounds over the last 3 years. She denies respiratory, cardiac, or G.I. problems. Past Medical History Past Medical History: No Reported History Additional Past Medical History / Comment(s): OCC MIGRAINES, DIVERTICULOSIS, "LEAKY HEART VALVE", HX OF MISCARRIAGE X2. Past CONE TENDER history: HPV on a Pap smear in the past. She denies genital warts or any other STDs. She has no history of cervical neoplasia. History of Any Multi-Drug Resistant Organisms: None Reported Past Surgical History: Section, Cholecystectomy, Tubal Ligation Additional Past Surgical History / Comment(s): x3,. benign excisional right breast 2017. mar 2019-neck surgery, Disc removed with plate insertion. Past Anesthesia/Blood Transfusion Reactions: No Reported Reaction Past Psychological History: ADD/ADHD Smoking Status: Current every day smoker (1/2-3/4 of a pack per day.) Past Alcohol Use History: Rare (1 or 2 per year) Additional Past Alcohol Use History / Comment(s): SMOKES 1/2 PPD. SMOKING SINCE 19 YEARS OLD. Past Drug Use History: None Reported Additional History: She is . She has been with her boyfriend since 2011 and lives with him. 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 - Past Family History Father Family Medical History: Cancer, COPD, Diabetes Mellitus Additional Family Medical History / Comment(s): crohns; skin cancer. Colon cancer. Mother Family Medical History: Hypertension Additional Family Medical History / Comment(s): Maternal grandfather had breast cancer and colon cancer. A maternal aunt had breast cancer. Sister(s) Family Medical History: Cancer Additional Family Medical History / Comment(s): ovarian & cervical cancer, hysterectomy at the age of 29 Medications and Allergies Home Medications Medication Instructions Recorded Confirmed Type No Known Home Medications 04/21/21 11/15/21 History Allergies Allergy/AdvReac Type Severity Reaction Status Date / Time adhesive tape AdvReac Severe PEELING Verified 11/15/21 09:57 bee venom protein (honey bee) AdvReac Anaphylaxis Unverified 11/15/21 09:57 Exam Vital Signs Temp Pulse Resp BP Pulse Ox 11/15/21 09:58 97.9 F 74 17 149/89 98 Intake and Output 11/14/21 11/15/21 11/15/21 22:59 06:59 14:59 Other: Weight 68.492 kg Height 5 feet 6 inches, weight 151 pounds, BMI 24.4. This is a well-developed well-nourished white female who is alert and oriented times 3 in no acute distress. HEENT: Within normal limits. NECK: Supple without mass or thyromegaly. CHEST AND LUNGS: Clear to auscultation. HEART: Regular rate and rhythm. BREASTS: Are without mass or discharge. AXILLARY EXAM: Negative for adenopathy. BACK: Negative for CVA tenderness. ABDOMEN: Soft, nontender, without palpable masses. PELVIC EXAM: Normal external genitalia. Cervix and vagina appear normal. There is no unusual discharge. There is no cervical motion tenderness. There is no evidence of prolapse. The uterus is midposition, nongravid size. There is mild uterine tenderness and mild right adnexal tenderness. There is mild to moderate left adnexal tenderness without palpable mass. There are no palpable adnexal masses. RECTAL EXAM: negative for mass or tenderness and is negative for occult blood. EXTREMITIES: Nontender. IMPRESSION: 1. 46-year-old female with occasional deep dyspareunia with pelvic tenderness on exam today greatest on the left side. Differential diagnosis will include hemorrhagic ovarian cyst, enlarged ovarian cyst, ruptured ovarian cyst, and nontender tenderness. I doubt PID since she does not have cervical motion tenderness or abnormal vaginal discharge. 2. Previous ASCUS Pap smear with negative high-risk HPV testing. 3. Strong family history of breast and ovarian cancer. 4. Recent occasional menstrual irregularity, possible early perimenopause. PLAN: 1. Pap smear cotest was performed. 2. Self breast awareness was discussed with the patient. We have also discussed symptoms associated with inflammatory breast cancer. 3. Pelvic ultrasound is recommended and the order slip was given to the patient for this. We will consider referral for possible laparoscopy if she has persistent or worsening deep dyspareunia. 4. She will keep a menstrual calendar and return with this if she is having inc reasing menstrual irregularity. 5. We have again discussed cancer genetic counseling and testing because of her family history. She would like a referral for this. She will be referred to the [facility]. 6. I have recommended quitting smoking. We have discussed many reasons why this is important. 7. Osteoporosis prevention was discussed. 8. Mammogram will be due in April 2022. The order slip was given to the patient for this. Her last mammogram was a diagnostic mammogram on 04/17/21 and was benign. Screening mammogram in 1 year was recommended. 9. She was advised to return in one year for her annual well woman exam and as needed.
== END | disposition home or self-care (01) ==
LOC: WWCWWP 09:52
PROVIDERS: ATTEND Obstetrics & Gynecology
DX: Z53.9 Procedure and treatment not carried out, unspecified reason (principal)

== ENCOUNTER → 2021-11-24 | Outpatient (CLI) | payer OTHER ==
--- NOTE | 2021-11-24 14:57 | US ---
EXAMINATION TYPE: US pelvic complete DATE OF EXAM: 11/24/2021 COMPARISON: NONE CLINICAL HISTORY: R68.89 LT PELVIC TENDERNESS. TECHNIQUE: . Transabdominal sonographic images of the pelvis were acquired. Transvaginal sonographi c images were medically necessary to better assess the following anatomy: endometrial stripe EXAM MEASUREMENTS: Uterus: 10.1 x 5.2 x 6.1 cm Endometrial Stripe: 1.2 cm Right Ovary: 2.7 x 1.2 x 1.5 cm Left Ovary: 3.4 x 2.4 x 3.2 cm 1. Uterus: Anteverted wnl 2. Endometrium: appears homogenous but thickened at 1.2cm 3. Right Ovary: wnl 4. Left Ovary: seen with a small 1.8cm follicle 5. Bilateral Adnexa: wnl 6. Posterior cul-de-sac: no free fluid seen IMPRESSION: 1. Endometrial thickening is nonspecific. 2. Left ovarian follicle.
== END | disposition home or self-care (01) ==
LOC: RADUSWWP 14:10
PROVIDERS: ATTEND Obstetrics & Gynecology
DX: N94.10 Unspecified dyspareunia (principal); R68.89 Other general symptoms and signs
CPT/HCPCS: 76830; 76856

== ENCOUNTER → 2022-05-03 | Outpatient (CLI) | payer OTHER ==
--- NOTE | 2022-05-06 19:09 | MM ---
Reason for Exam: Screening (asymptomatic). Last screening mammogram was performed 12 month(s) ago. Patient History: Menarche at age 13. First Full-Term at age 29. 11/07/2018, Benign Core Biopsy on the right side. 2016, Excisional Biopsy on the Right side. 10/13/2019, Benign Core Biopsy on the right side. 10/13/2019, Benign Core Biopsy on the left side. 06/25/2019, Benign Core Biopsy on the left side. 06/01/2019, Benign Core Biopsy on the right side. Maternal grandfather had breast cancer, age 67. Maternal aunt had breast cancer, age 56. Maternal aunt had breast cancer, age 40. Last menstrual period: 05/02/2022 Risk Values: Marla 5 year model risk: 2.3%. NCI Lifetime model risk: 16.0%. Prior Study Comparison: 04/13/2020 Bilateral Diagnostic Mammogram, [facility]. 10/12/2020 Left Diagnostic Mammogram, [facility]. 04/17/2021 Bilateral Diagnostic Mammogram, [facility]. Tissue Density: The breast tissue is heterogeneously dense. This may lower the sensitivity of mammography. Findings: Analyzed By CAD. Postexcisional changes on both sides. Chronic nodularity on the left more apparent on 3-D images. No significant change from prior exams. Overall Assessment: Benign, BI-RAD 2 Management: Screening Mammogram of both breasts in 1 year. 1. Patient should continue monthly self breast exams. 2. A clinical breast exam by your physician is recommended on an annual basis. 3. This exam should not preclude additional follow-up of suspicious palpable abnormalities. Electronically signed and approved by: Niesha José M.D. Radiologist
== END | disposition home or self-care (01) ==
LOC: RADMAMWWP 16:21
PROVIDERS: ATTEND Surgery
DX: Z12.31 Encounter for screening mammogram for malignant neoplasm of breast (principal); Z80.3 Family history of malignant neoplasm of breast; Z98.890 Other specified postprocedural states
CPT/HCPCS: 77063; 77067

== ENCOUNTER → 2022-07-18 | Outpatient (CLI) | payer OTHER ==
[2022-07-18 12:52] VITALS: BP 127/79; PULSE 90; RESP 17; TEMP 98.3
--- NOTE | 2022-07-18 13:44 | P.PN ---
Progress Note - Text Progress Note Date: 07/18/22 Chief Complaint: Prolonged heavy menstrual. From 06/21/2022 to 07/15/2022. HPI: This is a 47-year-old with an LMP of 06/21/2022. She is status post tubal ligation. The patient has been having menstrual irregularity over the past 1-2 years. On several occasions she has had menstrual periods that lasts 2 or more weeks. In December and January 2022 she had several days of intermenstrual spotting and other months she will have spotting that lasts several days after the normal flow of the menstrual period. Her LMP lasted about 3 weeks with very heavy flow during the first week where she had to change protection at least every hour and at times bled through her protection. ROS: She denies respiratory, cardiac, or GI problems. PE: Blood pressure: 127/79, Height: 5 feet 5 inches, Weight: 155 pounds, Temperature: 98.3, Pulse: 90. Pulse oximeter 95%. This is a well developed, well nourished, white female who is alert and orientedx3, in no acute distress. Neck: Supple without mass or thyromegaly. Abdomen: Soft, nontender, without palpable masses. Pelvic exam: Normal external genitalia. Cervix and vagina appear normal. The cervix is nulliparous appearing. There is no unusual discharge. There is no cervical motion tenderness. The uterus is slightly retroverted, nongravid size, and nontender. There are no palpable adnexal masses or tenderness. Impression: 1. 47-year-old female with menometrorrhagia during the past year with no sign ificant physical findings on exam today. 2. She has completed her childbearing and is status post tubal ligation. 3. She has had 2 abnormal Pap smears showing ASCUS with negative high-risk HPV testing on 11/25/2018 and 11/15/2021. Plan: 1. The plan for cervical screening was to repeat a Pap smear cotest in November 2022. 2. At this time I feel that visualization of the endometrial cavity and an image sampling with hysteroscopy and D&C or endometrial biopsy is warranted. The patient will be referred to Dr. Wise, who delivered her last 2 children, for evaluation and treatment. 3. At this time I do not feel that hormonal treatment with oral contraception is warranted especially since she is a smoker. 4. We have discussed other options including endometrial ablation and possible hysterectomy. Since she does have a family history of ovarian cancer in her sister she states she would consider a hysterectomy and possible removal of the ovaries. 5. I recommended that she take an iron supplement, ferrous sulfate 325 mg 1 daily because of the heavy prolonged menstrual bleeding. Time spent with the patient: 25 minutes
== END ==
LOC: WWCWWP 12:28
PROVIDERS: ATTEND Obstetrics & Gynecology
DX: N92.1 Excessive and frequent menstruation with irregular cycle (principal); Z98.51 Tubal ligation status; Z91.048 Other nonmedicinal substance allergy status; Z91.02 Food additives allergy status; F17.200 Nicotine dependence, unspecified, uncomplicated; O20.9 Hemorrhage in early pregnancy, unspecified; Z80.41 Family history of malignant neoplasm of ovary